=== PATIENT | female | born 1945 | race Caucasian/White ===

== ENCOUNTER 2022-12-31 08:37 | Inpatient (IN) | payer OTHER ==
[2022-12-31] MEDS ORDERED: NA CHLORIDE 0.9% 1,000 ML ONE (08:57)
[2022-12-31 09:17] LABS: Specific Gravity 1.024 (1.005-1.030); Urine Bacteria <20 /HPF (<20); Urine Bilirubin NEGATIVE (Negative); Urine Blood 2+ (Negative); Urine Clarity Clear (Clear); Urine Color Light-Yellow (Yellow); Urine Glucose 4+ (Over) (Negative); Urine Mucus Slight /HPF (None Seen); Urine Protein 1+ (Negative); Urine RBC <5 /HPF (None Seen); Urine Urobilinogen Normal (Normal); Urine WBC Clump Rare /HPF (None Seen); Urine pH 5.5 (5.0-7.0)
[2022-12-31 09:23] LABS: Absolute Lymphocytes (CBC) 0.8 K/uL (0.7-4.9); Hematocrit 42.2 % (36.0-45.0); Lymphocytes % 3.6 % (15.3-44.8); MCV 83.8 fL (80-100); MPV 8.9 fL (7.6-11.3); RBC Red Blood Cell Count 5.04 M/uL (3.86-4.86)
[2022-12-31 09:27] LABS: Protime INR 1.11
[2022-12-31 09:46] LABS: Albumin 3.3 g/dL (3.4-5.0); Bilirubin Total 0.8 mg/dL (0.2-1.0); Protein, Total 8.3 g/dL (6.4-8.2)
[2022-12-31 10:00] LABS: Blood Morphology Comment NOT SEEN (NOT SEEN); Platelet Estimate ADEQ; White Blood Cell Scan OK (OK)
--- NOTE | 2022-12-31 10:44 | RAD REPORT ---
EXAM DESCRIPTION: CT - Head C Spine Cap Wo Con - 12/31/2022 10:06 am CLINICAL HISTORY: fall, unable to get up, weakness COMPARISON: No comparisons TECHNIQUE: Head and cervical spine CT images were obtained without IV contrast. Chest, abdomen, and pelvis CT images were obtained following intravenous administration of 90 mL Isovue-300. Multiplanar reformats were generated and reviewed. All CT scans are performed using dose optimization technique as appropriate and may include automated exposure control or mA/KV adjustment according to patient size. FINDINGS: CT HEAD: No intracranial hemorrhage, mass effect, or edema. No evidence of acute territorial infarct. Nonspeci fic deep white matter mild hypoattenuation, most suggestive of chronic small vessel ischemic changes. No midline shift or abnormal fluid collection. The ventricles are normal in caliber and configuratio n for age. Basal cisterns are patent. Mastoid aircells and paranasal sinuses are clear. No acute skul l fracture. Scalp swelling along the bilateral parietal regions. CT CERVICAL SPINE: No acute cervical spine fracture or subluxation. Vertebral body heights are well maintained. Facet maida ints are normal in alignment. No hyperattenuating canal hematoma. The mild multilevel degenerative ch anges. Prevertebral and paraspinous soft tissues are unremarkable. CT CHEST: No pneumothorax, pulmonary contusion or pleural fluid collection. No mediastinal hematoma and the aor ta and pulmonary arteries are unremarkable. No chest will mass or abnormal axillary finding. No displ aced rib fracture or other significant bony finding. CT ABDOMEN/ PELVIS: No evidence of traumatic injury to solid abdominal viscera. Single small gallstone. No pericholecysti c fat stranding or apparent wall thickening. No evidence of intra or extrahepatic biliary ductal dila tion. The and uterine calcifications suggestive of underlying small fibroids. A right paramidline ant erior subserosal 4.4 centimeter fibroid with calcifications is also noted. No bowel injury or signifi cant finding. No free air, free fluid or abnormal fat stranding. No urinary bladder abnormality. No significant bony finding. IMPRESSION: No evidence of significant acute posttraumatic findings. Mild scalp swelling along the bilateral parietal regions. Other incidental findings as above.
--- NOTE | 2022-12-31 10:46 | RAD REPORT ---
EXAM DESCRIPTION: RAD - Shoulder Left 2 View - 12/31/2022 10:09 am CLINICAL HISTORY: PAIN COMPARISON: No comparisons TECHNIQUE: Internal and external rotation views of the left shoulder were obtained. FINDINGS: Depressed fracture along the greater tuberosity. Slight widening of the subacromial space, could be positional, or related to a degree of subluxation. AC joint is normal in appearance. No acu te or suspicious findings. IMPRESSION: Depressed fracture of the greater tuberosity. Widening of the subacromial space, could b e positional or related to a degree of subluxation.
--- NOTE | 2022-12-31 10:47 | RAD REPORT ---
EXAM DESCRIPTION: RAD - Femur Left - 12/31/2022 10:09 am CLINICAL HISTORY: fall;Pain COMPARISON: No comparisons TECHNIQUE: Left femur, 2 views. FINDINGS: No fracture is identified. Mild left hip joint degenerative changes. Moderate to advanced left knee joint degenerative changes, with joint space loss medially. There is no dislocation or roberto osteal reaction noted. No acute or suspicious bony finding. IMPRESSION: No acute osseous abnormality of the left femur. Degenerative changes as above.
--- NOTE | 2022-12-31 11:16 | ER ---
Nurse's Notes [facility] Name: Kandice Dewey Age: 77 yrs Sex: Female : 1945 Arrival Date: 12/31/2022 Time: 08:37 Bed 3 Private MD: Diagnosis: Fracture of greater tuberosity of humerus;Dehydration;Fall on same level from slipping, tripping and stumbling without subsequent striking against object;UTI/ Urinary tract infection, site not specified;Cellulitis, unspecified Presentation: 12/31 08:40 Chief complaint: EMS states: Toned out for fall, pt reports mechanical fall yesterday jl7 at 0800 in the morning, was unable to get up and didn't have her phone. Reporting left knee pain and left shoulder pain. 08:40 Coronavirus screen: At this time, the client does not indicate any symptoms associated jl7 with coronavirus-19. Ebola Screen: No symptoms or risks identified at this time. Initial Sepsis Screen: Does the patient meet any 2 criteria? No. Patient's initial sepsis screen is negative. Does the patient have a suspected source of infection? No. Patient's initial sepsis screen is negative. Risk Assessment: Do you want to hurt yourself or someone else? Patient reports no desire to harm self or others. Onset of symptoms was December 30, 2022 at 08:00. 08:40 Method Of Arrival: EMS: [place] [id number] 08:40 Acuity: MYESHA 3 jl7 Triage Assessment: 08:40 General: Appears in no apparent distress. uncomfortable, Behavior is calm, cooperative, jl7 appropriate for age. Pain: Complains of pain in anterior aspect of left shoulder and left knee. Neuro: Level of Consciousness is awake, alert, obeys commands, Oriented to person, place, time, situation. Cardiovascular: Patient's skin is warm and dry. Respiratory: Airway is patent Respiratory effort is even, unlabored, Respiratory pattern is regular, symmetrical, Denies shortness of breath. Respiratory: Denies pain with respiration. Derm: Skin is pink, warm \\T\\ dry. Wound noted left lower back and right breast. Historical: - Allergies: 09:45 Latex, Natural Rubber; jl7 09:45 Codeine; jl7 - Home Meds: 11:36 metformin 850 mg oral tablet 2 times per day [Active]; glyburide 5 mg oral tablet 2 jl7 times per day [Active]; - PMHx: 09:45 Diabetes mellitus; Hypertensive disorder; Hypercholesterolemia; jl7 - Immunization history:: Adult Immunizations unknown. - Social history:: Smoking status: Patient denies any tobacco usage or history of. - Family history:: not pertinent. - Hospitalizations: : No recent hospitalization is reported. Screenin:51 Abuse screen: Denies threats or abuse. Denies injuries from another. Nutritional [facility] screening: No deficits noted. Tuberculosis screening: No symptoms or risk factors identified. 10:00 [facility] ED Fall Risk Assessment (Adult) History of falling in the last 3 months, [facility] including since admission Yes- single mechanical fall (1 pt) Confusion or Disorientation No (0 pts) Intoxicated or Sedated No (0 pts) Impaired Gait Yes (1 pt) Mobility Assist Device Used No (0 pt) Altered Elimination No (0 pt) Score/Fall Risk Level 0 - 2 = Low Risk Oriented to surroundings, Maintained a safe environment. Assessment: 08:45 Reassessment: 16 FR Chapman placed, after placement pt reported latex allergy, pt states jl "I've had a catheter before and it didn't bother me so just leave this one in place. Just don't use latex gloves.". 11:33 Reassessment: Patient appears in no apparent distress at this time. Family remains at [facility] bedside, awaiting admission orders at this time. 12:02 Reassessment: Dr. Qiu at bedside. [facility] 13:00 Reassessment: Patient appears in no apparent distress at this time. No changes from [facility] previously documented assessment. Patient and/or family updated on plan of care and expected duration. Pain level reassessed. Patient is alert, oriented x 3, equal unlabored respirations, skin warm/dry/pink. 14:00 Reassessment: Patient appears in no apparent distress at this time. No changes from [facility] previously documented assessment. Patient and/or family updated on plan of care and expected duration. Pain level reassessed. Patient is alert, oriented x 3, equal unlabored respirations, skin warm/dry/pink. 15:00 Reassessment: Patient appears in no apparent distress at this time. No changes from [facility] previously documented assessment. Patient and/or family updated on plan of care and expected duration. Pain level reassessed. Patient is alert, oriented x 3, equal unlabored respirations, skin warm/dry/pink. Vital Signs: 08:40 BP 151 / 101; Pulse 88; Resp 15; Temp 97.9; jl7 10:00 BP 156 / 107; Pulse 103; Resp 15; Temp 98.6; Pulse Ox 97% ; Weight 107.5 kg; Height 5 jl7 ft. 3 in. ; Pain 8/10; 10:45 BP 168 / 83; Pulse 97; Resp 15; Pulse Ox 100% ; jl7 10:00 Body Mass Index 41.98 (107.50 kg, 160.02 cm) jl7 10:00 Pain Scale: Adult jl7 ED Course: 08:40 Patient arrived in ED. rn 08:40 Alphonso Roebrto MD is Attending Physician. rn 08:40 Arm band placed on right wrist. jl7 08:45 Urine collected: Chapman catheter specimen, titi colored. Chapman cath inserted, using jl7 sterile technique, 16 Fr., by pa, balloon inflated, urine specimen collected. 08:55 Urinalysis w/ reflexes Sent. ll1 09:00 Inserted saline lock: 20 gauge in right antecubital area, using aseptic technique. jl7 Blood collected. 09:00 Initial lab(s) drawn, by pa, sent to lab. First set of blood cultures drawn by pa. jl7 09:10 Inserted saline lock: 20 gauge in left antecubital area, using aseptic technique. jl7 09:15 Second set of blood cultures drawn by pa. jl7 09:42 Ángel Krueger, DAVIN is Primary Nurse. jl7 09:45 Triage completed. jl7 10:00 Patient has correct armband on for positive identification. Placed in gown. Bed in low jl7 position. Call light in reach. Side rails up X2. Client placed on continuous cardiac and pulse oximetry monitoring. NIBP monitoring applied. Warm blanket given. 10:02 Cleaned of incontinence. jl7 10:09 Head C Spine Cap Wo Con In Process Unspecified. EDMS 10:11 XRAY Shoulder LEFT 2 view In Process Unspecified. EDMS 10:11 XRAY Femur LEFT In Process Unspecified. EDMS 11:14 Giancarlo Qiu MD is Hospitalizing Provider. rn 15:31 No provider procedures requiring assistance completed. Patient admitted, IV remains in jl7 place. intact, No redness/swelling at site. Administered Medications: 09:20 Drug: NS 0.9% IV 1000 ml Route: IV; Rate: 1000 ml; Site: right antecubital; jl7 10:30 Follow up: Response: No adverse reaction; IV Status: Completed infusion; IV Intake: jl7 1000ml 11:34 Drug: vancoMYCIN IVPB 1 grams Route: IVPB; Infused Over: 2 hrs; Site: left antecubital; jl7 13:35 Follow up: Response: No adverse reaction; IV Status: Completed infusion; IV Intake: jl7 250ml 11:34 Drug: Cefepime IVPB 1 grams Route: IVPB; Rate: 200 ml/hr; Infused Over: 30 mins; Site: jl7 right antecubital; 12:04 Follow up: Response: No adverse reaction; IV Status: Completed infusion; IV Intake: jl7 100ml Medication: 08:45 VIS not applicable for this client. jl7 Intake: 10:30 IV: 1000ml; Total: 1000ml. jl7 12:04 IV: 100ml; Total: 1100ml. jl7 13:35 IV: 250ml; Total: 1350ml. jl7 Outcome: 11:14 Decision to Hospitalize by Provider. rn 15:32 Admitted to Med/surg accompanied by tech, family with patient, via stretcher, room 215, jl7 with chart, Report called to DAVIN Storey 15:32 Condition: stable 15:32 Discharge instructions given to patient, family, Instructed on the need for admit, Demonstrated understanding of instructions. 16:26 Patient left the ED. jl7 Signatures: Dispatcher [employer] EDMS Alphonso Roberto MD MD rn Leal, Jahala, RN RN jl7 Morenita Martínez RN RN ll1
--- NOTE | 2022-12-31 11:16 | EDPHYS ---
Physician Documentation [facility] Name: Kandice Dewey Age: 77 yrs Sex: Female : 1945 Arrival Date: 12/31/2022 Time: 08:37 Bed 3 Private MD: ED Physician Alphonso Roberto HPI: 12/31 11:09 This 77 yrs old Female presents to ER via EMS with complaints of Fall Injury. rn 11:09 Details of fall: The patient fell from an upright position. Onset: The symptoms/episode rn began/occurred yesterday. 11:10 Associated injuries: The patient sustained injury to the head, neck injury, injury to rn the low back, left shoulder. Severity of symptoms: At their worst the symptoms were moderate, in the emergency department the symptoms are unchanged. The patient has not experienced similar symptoms in the past. The patient has not recently seen a physician. Pt reports fall from standing yesterday, has been on ground unable to get up for 24 hours, found by family member who was visiting, soaked in urine, no PO intake for last 24 hours. Reports head pain, left shoulder pain, low back pain, left flank pain.. Historical: - Allergies: 09:45 Latex, Natural Rubber; jl7 09:45 Codeine; jl7 - Home Meds: 11:36 metformin 850 mg oral tablet 2 times per day [Active]; glyburide 5 mg oral tablet 2 jl7 times per day [Active]; - PMHx: 09:45 Diabetes mellitus; Hypertensive disorder; Hypercholesterolemia; jl7 - Immunization history:: Adult Immunizations unknown. - Social history:: Smoking status: Patient denies any tobacco usage or history of. - Family history:: not pertinent. - Hospitalizations: : No recent hospitalization is reported. ROS: 11:10 Constitutional: Negative for fever, chills, and weight loss, Eyes: Negative for injury, rn pain, redness, and discharge, Cardiovascular: Negative for chest pain, palpitations, and edema, Respiratory: Negative for shortness of breath, cough, wheezing, and pleuritic chest pain, Abdomen/GI: Negative for abdominal pain, nausea, vomiting, diarrhea, and constipation, Back: + left flank and back pain MS/Extremity: Negative for injury and deformity, Skin: Negative for injury, rash, and discoloration, Neuro: Negative for numbness, tingling, and seizure. Exam: 10:52 Constitutional: This is a well developed, well nourished patient who is awake, alert, rn and in no acute distress. Head/Face: Normocephalic, atraumatic. Eyes: Periorbital areas with no swelling, redness, or edema. Neck: no midline cervical tenderness Cardiovascular: Regular rate and rhythm. No pulse deficits. Respiratory: No increased work of breathing, no retractions or nasal flaring. Abdomen/GI: Soft, non-tender Skin: + ulcerative right lateral breast mass with some retraction. + left flank/low back induration/erythema/warmth/draining ulceration of skin. MS/ Extremity: + painful ROM left shoulder Neuro: Awake and alert, GCS 15, strength 4/5 throughout Vital Signs: 08:40 BP 151 / 101; Pulse 88; Resp 15; Temp 97.9; jl7 10:00 BP 156 / 107; Pulse 103; Resp 15; Temp 98.6; Pulse Ox 97% ; Weight 107.5 kg; Height 5 jl7 ft. 3 in. ; Pain 8/10; 10:45 BP 168 / 83; Pulse 97; Resp 15; Pulse Ox 100% ; jl7 10:00 Body Mass Index 41.98 (107.50 kg, 160.02 cm) jl7 10:00 Pain Scale: Adult jl7 MDM: 08:40 Patient medically screened. rn 11:10 Differential diagnosis: closed head injury, contusion, fracture, sprain, strain, rn abscess, sepsis, UTI, breast cancer. Data reviewed: vital signs, nurses notes, lab test result(s), radiologic studies, CT scan, plain films, and as a result, I will admit patient. Consideration of Admission/Observation Patient was admitted/placed on observation. Escalation of care including admission/observation considered. Management of patient was discussed with the following: Hospitalist: . Counseling: I had a detailed discussion with the patient and/or guardian regarding: the historical points, exam findings, and any diagnostic results supporting the discharge/admit diagnosis, lab results, radiology results, the need for further work-up and treatment in the hospital. 12/31 08:41 Order name: Blood Culture Adult (2) rn 12/31 08:41 Order name: CBC with Diff; Complete Time: 10:27 rn 12/31 08:41 Order name: CMP; Complete Time: 10:27 rn 12/31 08:41 Order name: Lactate w/ 2H reflex if indic.; Complete Time: 10:27 rn 12/31 08:41 Order name: Protime (+inr); Complete Time: 10:27 rn 12/31 08:41 Order name: Ptt, Activated; Complete Time: 10:27 rn 12/31 08:41 Order name: Urinalysis w/ reflexes; Complete Time: 10:27 rn 12/31 08:41 Order name: CK; Complete Time: 10: rn 12/31 09:00 Order name: Wound Culture rn 12/31 09:09 Order name: Glucose, Ancillary Testing; Complete Time: 10:27 EDTX 12/31 09:21 Order name: Urine Culture EDTX 12/31 10:01 Order name: CBC Smear Scan; Complete Time: 10: EDTX 12/31 13:00 Order name: NT PRO-BNP EDTX 12/31 14:45 Order name: Glucose, Ancillary Testing EDTX 12/31 08:42 Order name: XRAY Shoulder LEFT 2 view; Complete Time: 10:51 rn 12/31 08:42 Order name: XRAY Femur LEFT; Complete Time: 10:51 rn 12/31 09:49 Order name: Head C Spine Cap Wo Con; Complete Time: 10:51 EDTX 12/31 08:41 Order name: EKG; Complete Time: 08:42 rn 12/31 13:14 Order name: CONS Physician Consult EDTX 12/31 13:15 Order name: 60g Consistent Carbohydrate (ADA 1800/2000) EDTX 12/31 08:41 Order name: Accucheck; Complete Time: 09:51 rn 12/31 08:41 Order name: Cardiac monitoring; Complete Time: 09:51 rn 12/31 08:41 Order name: Cath; Complete Time: 08:55 rn 12/31 08:41 Order name: EKG - Nurse/Tech; Complete Time: 09:51 rn 12/31 08:41 Order name: IV Saline Lock - Large Bore; Complete Time: 09:51 rn 12/31 08:41 Order name: Labs collected and sent; Complete Time: 09:51 rn 12/31 08:41 Order name: O2 Per Protocol; Complete Time: 09:51 rn 12/31 08:41 Order name: O2 Sat Monitoring; Complete Time: 09:51 rn 12/31 08:41 Order name: Vital Signs; Complete Time: 09:51 rn 12/31 11:09 Order name: Shoulder Immobilizer; Complete Time: 15:32 rn Administered Medications: 09:20 Drug: NS 0.9% IV 1000 ml Route: IV; Rate: 1000 ml; Site: right antecubital; jl7 10:30 Follow up: Response: No adverse reaction; IV Status: Completed infusion; IV Intake: jl7 1000ml 11:34 Drug: vancoMYCIN IVPB 1 grams Route: IVPB; Infused Over: 2 hrs; Site: left antecubital; jl7 13:35 Follow up: Response: No adverse reaction; IV Status: Completed infusion; IV Intake: jl7 250ml 11:34 Drug: Cefepime IVPB 1 grams Route: IVPB; Rate: 200 ml/hr; Infused Over: 30 mins; Site: jl7 right antecubital; 12:04 Follow up: Response: No adverse reaction; IV Status: Completed infusion; IV Intake: jl7 100ml Disposition Summary: 12/31/22 11:14 Hospitalization Ordered Hospitalization Status: Inpatient Admission rn Provider: Giancarlo Qiu rn Location: Telemetry/MedSurg (Inpatient) rn Condition: Stable rn Problem: new rn Symptoms: have improved rn Bed/Room Type: Standard rn Room Assignment: 215(12/31/22 14:57) bd Diagnosis - Fracture of greater tuberosity of humerus rn - Dehydration rn - Fall on same level from slipping, tripping and stumbling without subsequent rn striking against object - UTI/ Urinary tract infection, site not specified rn - Cellulitis, unspecified rn Forms: - Medication Reconciliation Form rn - SBAR form rn Signatures: Dispatcher [employer] EDMS Cherelle Orlando Roman, MD MD rn Leal, Jahala, RN RN jl7 Corrections: (The following items were deleted from the chart) 09:49 08:42 Head C Spine CAP W Con+CT.RAD.BRZ ordered. EDTX EDTX 14:57 11:14 rn bd
[2022-12-31] MEDS ORDERED: VANCOMYCIN 1 GM/VIAL ONE (11:25)
[2022-12-31] MEDS ORDERED: CEFEPIME 1 GM/VIAL ONE (11:25)
[2022-12-31] MEDS ORDERED: NA CHLORIDE 0.9% 250 ML ONE (11:25)
[2022-12-31] MEDS ORDERED: NA CHLORIDE 0.9% 100 ML ONE (11:25)
[2022-12-31] MEDS ORDERED: GLUCAGON 1 MG/VIAL IM PRN (13:13)
[2022-12-31] MEDS ORDERED: D10W 250 ML BAG IV PRN (13:15)
--- NOTE | 2022-12-31 15:54 | P.HP ---
Certification for Inpatient Patient admitted to: Inpatient With expected LOS: >2 Midnights Patient will require the following post-hospital care: None Practitioner: I am a practitioner with admitting privileges, knowledge of patient current condition, hospital course, and medical plan of care. Services: Services provided to patient in accordance with Admission requirements found in Title 42 Section 412.3 of the Code of Federal Regulations Patient History Date of Service: 12/31/22 Reason for admission: Fall History of Present Illness: Patient is a 77-year-old female with a past medical history significant for DM 2, hyperlipidemia, morbid obesity, hypertension who presents with complaint of fall which occurred yesterday. Patient reported that her walker got stuck at home as she was walking and patient subsequently fell. Patient denies hitting her head or losing consciousness. Patient reported that she was on the floor for 24 hours. Patient complains of left shoulder pain rated as 10/10 in severity and described as aching in quality. Patient also reports right breast abscess\ulcer that has gotten worse over the past 1 month as well as left flank abscess which started as an induration 1 month ago but became a wound 1 week ago with associated redness. Patient denies any other signs and symptoms. Symptoms are aggravated or relieved by nothing. Patient was brought to the hospital for medical evaluation. Allergies codeine [Codeine] Allergy (Intermediate, Verified 06/26/14 03:48) Disorientation latex Allergy (Verified 06/26/14 03:48) Hives Home Medications: oxyBUTYnin chloride [Ditropan*] 5 mg PO DAILY 03/18/13 Simvastatin [Zocor*] 20 mg PO BEDTIME #30 tablet 03/19/13 lisinopriL [Prinivil*] 10 mg PO DAILY #30 tab 03/19/13 Liraglutide [Victoza 2-Tai] 1.2 mg SQ DAILY 06/26/14 Glyburide [Diabeta] 5 mg PO BID #60 tablet 06/29/14 Levofloxacin [Levaquin] 500 mg PO DAILY #10 tablet 06/29/14 Potassium Chloride [Klor-Con M10] 10 meq PO DAILY #7 tab.er.prt 06/30/14 - Past Medical/Surgical History Diabetic: Yes -: DM, HTN, HYPERLIPIEMIA -: tonsillectomy -: appy - Family History Mother -: Heart disease, Diabetes Notes: CHF Brother -: Hypertension, Diabetes Notes: HTN AND HYPERLIPIDEMIA. Sister -: Cancer Notes: THYROID CANCER. - Social History Smoking Status: Never smoker Alcohol use: No CD- Drugs: No Caffeine use: Yes Place of Residence: Home Review of Systems General: Unremarkable Eyes: Unremarkable ENT: Unremarkable Respiratory: Unremarkable Cardiovascular: Unremarkable Gastrointestinal: Unremarkable Genitourinary: Unremarkable Musculoskeletal: Shoulder Pain Integumentary: Other (Right breast abscess\left flank abscess) Neurological: Unremarkable Lymphatics: Unremarkable Physical Examination - Physical Exam General: Alert, In no apparent distress, Oriented x3, Cooperative HEENT: Atraumatic, PERRLA, Mucous membr. moist/pink, EOMI, Sclerae nonicteric Neck: Supple, 2+ carotid pulse no bruit, No LAD, Without JVD or thyroid abnormality Respiratory: Clear to auscultation bilaterally, Normal air movement Cardiovascular: No edema, Regular rate/rhythm, Normal S1 S2 Capillary refill: <2 Seconds Gastrointestinal: Normal bowel sounds, Soft and benign, No tenderness Musculoskeletal: No clubbing, No swelling, No tenderness Integumentary: Skin breakdown, Tenderness/swelling, Erythema Neurological: Normal speech, Normal tone, Normal affect Lymphatics: No axilla or inguinal lymphadenopathy - Studies Laboratory Data (last 24 hrs) 12/31/22 09:00: PT 12.2, INR 1.11, APTT 25.9 12/31/22 09:00: Sodium 134 L, Potassium 4.0, BUN 18, Creatinine 0.88, Glucose 303 H, Total Bilirubin 0.8, AST 36, ALT 28, Alkaline Phosphatase 71 12/31/22 09:00: WBC 21.30 H, Hgb 13.5, Hct 42.2, Plt Count 267 Female Exam - Breasts Breasts: Other (Right breast abscess.) Assessment and Plan - Plan --Left flank and right breast abscess. General surgeon consulted. Continue antibiotics. Wound cultures pending. We will further recommendation from surgeon. --Depressed fracture of the greater tuberosity. Orthopedic surgeon reported. Recommended placing patient on left arm sling and nonweightbearing on left arm. -- Acute pain. We will manage pain with current pain medication regimen. --Leukocytosis. Blood cultures pending. Continue antibiotics. --Class III obesity. Likely secondary to excess calories intake. Patient counseled on weight reduction, diet and excise therapy. --Hypertension. Poorly controlled. Continue home medications and labetalol as needed. --Hyperlipidemia. Continue home medication. --OAB. Continue home medication. --CKD 2. Stable. We will continue to monitor renal functions. --DVT prophylaxis with SCDs. Discharge Plan: Home Plan to discharge in: Greater than 2 days - Advance Directives Does patient have a Living Will: No Does patient have a Durable POA for Healthcare: Yes - Code Status/Comfort Care Code Status Assessed: Yes Physician Review: Patient Assessed, Agree with Above Assessment and Plan Critical Care: No
[2022-12-31] MEDS: INSULIN -REGULAR HUMAN 50 UNIT/0.5 ML ML SQ SCH ×2 (16:30→22:00)
[2022-12-31 18:31] VITALS: BMI 42.0
[2022-12-31 20:00] LABS: Absolute Lymphocytes (CBC) 1.1 K/uL (0.7-4.9); Hematocrit 37.2 % (36.0-45.0); Lymphocytes % 5.5 % (15.3-44.8); MCV 83.2 fL (80-100); MPV 8.9 fL (7.6-11.3); RBC Red Blood Cell Count 4.47 M/uL (3.86-4.86)
[2022-12-31] MEDS ORDERED: PNEUMOCOCCAL VACCINE 0.5 ML IMVAC ONE (20:00)
[2022-12-31 20:26] LABS: Magnesium 1.5 mg/dL (1.6-2.4); Thyroid Stimulating Hormone 1.82 uIU/mL (0.358-3.740)
[2022-12-31 20:31] LABS: Phosphorus 1.1 mg/dL (2.5-4.9)
[2022-12-31] MEDS ORDERED: POTASS/SODIUM PHOSPHATE 1 PKT POWD.PACK PO SCH (21:00)
[2022-12-31] MEDS: NA CHLORIDE 0.9% 1,000 ML IV SCH (21:59)
[2022-12-31] MEDS: CEFEPIME 1 GM in NA CHLORIDE 0.9% 100 ML IV SCH (22:01)
[2023-01-01] MEDS ORDERED: POTASSIUM PHOS IN 0.9 % NACL 15 MMOL/250 ML BAG IV ONE ×2 (00:44→09:00)
[2023-01-01] MEDS: VANCOMYCIN 1.25 GM in NA CHLORIDE 0.9% 250 ML IVPB SCH ×2 (01:24→23:37)
[2023-01-01 03:58] LABS: Albumin 2.4 g/dL (3.4-5.0); Bilirubin Total 0.6 mg/dL (0.2-1.0); Potassium 3.6 mEq/L (3.5-5.1); Protein, Total 6.3 g/dL (6.4-8.2)
[2023-01-01] MEDS ORDERED: Magnesium Sulfate 2gm IVPB 2 G/50 ML BAG IV ONE (04:00)
[2023-01-01 04:56] LABS: Phosphorus 1.9 mg/dL (2.5-4.9)
--- NOTE | 2023-01-01 07:08 | EKG ---
Test Date: 2022-12-31 Test Time: 09:38:38 Welfare Director: ZOILA MEASUREMENT RESULTS: Intervals: Rate: 96 MS: 170 QRSD: 82 QT: 338 QTc: 427 [place]: P: 72 MS: 170 QRS: 48 T: -35 INTERPRETIVE STATEMENTS: Sinus rhythm with premature atrial complexes Possible Inferior infarct, age undetermined Abnormal ECG Compared to ECG 06/25/2014 20:56:30 Atrial premature complex(es) now present Myocardial infarct finding now present Sinus tachycardia no longer present Electronically Signed On 01-01-23 07:06:39 CDT by Carlos Schmidt
[2023-01-01] MEDS ORDERED: NA CHLORIDE 0.9% 100 ML ONE (08:51)
[2023-01-01] MEDS ORDERED: CEFEPIME 1 GM/VIAL ONE (08:54)
[2023-01-01] MEDS: NA CHLORIDE 0.9% 1,000 ML IV SCH ×2 (08:58→21:39)
[2023-01-01] MEDS: CEFEPIME 1 GM in NA CHLORIDE 0.9% 100 ML IV SCH ×2 (08:58→21:39)
[2023-01-01] MEDS: MORPHINE 4 MG/ML SYR IV PRN ×3 (08:59→16:20)
[2023-01-01] MEDS: INSULIN -REGULAR HUMAN 50 UNIT/0.5 ML ML SQ SCH ×4 (08:59→21:39)
[2023-01-01] MEDS ORDERED: POTASSIUM CL SA 10 MEQ TAB PO ONE (09:00)
[2023-01-01] MEDS ORDERED: BUPIVACAINE 0.5% PF 10 ML VIAL ONE (13:41)
--- NOTE | 2023-01-01 14:17 | P.CNS ---
Date of Consult: 01/01/23 PC: I was asked to see this patient in regards to a lesion of her right breast/chest wall. HPC: This patient, sustained a fall. She is in because of a fractured humerus. This has been dealt with with conservative management, and follow-up as outpatient. However was noted at the time the patient also has a lesion on her left thigh/hip area which appears to be an old abscess. She also has an 8 lesion of concern on the right chest breast area that appears to be a abscess with hard induration around this. She was supposedly to be scheduled for a mammogram at some point. PSHx: NAD PMHx: History of thyroid cancer Social Hx: Says she is got allergies codeine and latex Sys R: No cough, wheeze, shortness of breath. States she has been okay at home. Was positive got a mammogram a few months ago, but this did not work out for her. O/E: Awake alert. HEENT: Negative Chest: On the right breast chest area, has a large indurated area with contraction. It appears to be old for an abscess that we can see on the CT scan. Abd: Has an area on her left thigh hip area consistent with an abscess. Data: CT scan shows these abscesses Impression: 2 abscesses Plan: I will taken to the operating room for incision, drainage, sharp debridement of both these abscesses. We will try to determine the etiology of the wound in her right breast, as she may require further treatment once the underlying etiology has been discovered. I have discussed this in detail with the patient. She is comfortable with this. The risks of the procedure were discussed. The possibility of bleeding, infection, the fact that the procedures today are not that necessarily curative and she may require further surgeries and procedures.
[2023-01-01] MEDS ORDERED: MIDAZOLAM HCL 2 MG/2 ML INJ ONE (14:19)
[2023-01-01] MEDS ORDERED: ONDANSETRON 4 MG/2 ML VIAL ONE (14:19)
[2023-01-01] MEDS ORDERED: propofoL 200 MG/20 ML VIAL IV ONE (14:19)
[2023-01-01] MEDS ORDERED: FENTANYL CITR 100 MCG/2 ML ONE ×2 (14:19→15:02)
[2023-01-01] MEDS ORDERED: LIDOCAINE 2% MPF 5 ML VIAL ONE (14:20)
--- NOTE | 2023-01-01 14:22 | CON ---
Date of Consultation: 01/01/2023 Reason For Consultation: Left shoulder pain. History Of Present Illness: Ms. Dewey is a 77-year-old female, who presented to the ER yesterday a fter sustaining a fall onto her left side with subsequent pain on to her left shoulder. The patient had imaging in the emergency room, which demonstrated a minimally displaced greater tuberosity fractu re. The patient denies any head trauma or loss of consciousness. The patient states she fell after her walker got stuck. She was admitted to the floor by the hospitalist service for further evaluatio n and treatment recommendations. Review of Systems: As above, otherwise negative. Past Medical History: Includes diabetes, hyperlipidemia, hypertension. Past Surgical History: Includes appendectomy, tonsillectomy. Home Medications: Oxybutynin, simvastatin, lisinopril, Victoza, glyburide, Levaquin, and potassium. Allergies: TO CODEINE AND LATEX. Family History: Reviewed and noncontributory. Social History: Denies tobacco or alcohol use. Denies drug use. Lives at home. Physical Examination: General: No apparent distress. HEENT: Normocephalic, atraumatic. Neck: Supple. Cardiovascular: Brisk cap refill to all digits. Chest: Nonlabored breathing. Abdomen: Nondistended. Psychiatric: Responds to exam. Musculoskeletal: Right upper extremity functional range of motion without pain. No gross deformitie s. No dislocations. Left upper extremity; tenderness to palpation over the greater tuberosity, pain with range of motion of left shoulder. No tenderness over the elbow, forearm, or wrist. Neurovascu larly intact distally. Bilateral lower extremities; functional range of motion without pain, no tomasa s deformities, no obvious dislocations. Diagnostic Studies: X-ray and CAT scan demonstrate a minimally displaced left greater tuberosity fra cture. Assessment And Plan: Kandice is a 77-year-old female with a left shoulder greater tuberosity fracture . I discussed with the patient's at length diagnosis as well as treatment plan. No surgical interve ntion is indicated for the left shoulder at this time. We will proceed with conservative treatment m easures including sling immobilization. The patient will be nonweightbearing of her left upper extre mity. Physical Therapy may be consulted today with mobilization. The patient may follow up in my in in 3 weeks for re-evaluation and x-rays of her left shoulder. CV/MODL Voice ID: [id number] Report ID: [id number]
--- NOTE | 2023-01-01 14:39 | EKG ---
Test Date: 2022-12-31 Test Time: 11:56:52 Licensed Nurse Practitioner: ZOILA MEASUREMENT RESULTS: Intervals: Rate: 104 NC: 160 QRSD: 82 QT: 320 QTc: 420 [place]: P: 63 NC: 160 QRS: 57 T: 64 INTERPRETIVE STATEMENTS: Sinus tachycardia with premature atrial complexes Otherwise normal ECG Compared to ECG 12/31/2022 09:38:38 Sinus rhythm no longer present Myocardial infarct finding no longer present Electronically Signed On 01-01-23 14:37:13 CDT by Nicholas De Oliveira
--- NOTE | 2023-01-01 15:21 | P.OP ---
Preoperative diagnosis: Right breast mass, abscess left flank Postoperative diagnosis: The same Primary procedure: Excisional biopsy of right breast mass, Secondary procedure: Wide excision of necrotic skin and drainage of left flank abscess Anesthesia: General Estimated blood loss: Less than 20 cc Specimen: Mass from right breast Operative Technique: The patient brought the operating room placed supine on the table. After the induction of adequate general endotracheal tracheal anesthesia, the area of the right breast was prepped with a Betadine solution, and draped in usual aseptic manner. At the lateral aspect of this right breast there is an area measuring approximately 3 inches x 2 inches in size. It shows thinned chronic inflammatory tissue. This was excised in a circumferential manner. After we had done this we took an 11 blade and cored out a sample of this thickened tissue underneath. It cut like a cancer. This was sent for histopathology. This wound was packed open with iodoform gauze. Adequate hemostasis having been controlled with electrocautery. Deep palpation of the axilla at this time and along the lateral aspect of the chest does not reveal any large palpable lymph nodes. My plan is to verify that this is indeed a cancer and discussed with the patient a modified radical mastectomy on the right. The wound was dressed in the usual manner. Attention was now turned towards his area of abscess on the left hip. It is right at the the junction of the buttock with the lateral portion of the left flank. A skin incision was made to fully excise the circumferential piece of full-thickness tissue. The underlying tissue had an obvious necrotic odor coming from it. Cultures both aerobic and anaerobic were taken. The underlying tissue was then sharply debrided with a cutting surgical curette. At the most dependent portion of this wound a counterincision was made. Through this we passed 1/4 inch drain. We will leave this wound open. The wound was irrigated with a peroxide solution and a dressing applied. At the end of the procedure the patient was in a stable condition was sent to the recovery room. Needle sponge instrument count were correct. Complications: None Drain(s): Other (Quarter-inch Bricelyn drain) Transferred to: Recovery Room Condition: Good
[2023-01-01 17:36] LABS: Specific Gravity > 1.030 (1.005-1.030); Urine Clarity Turbid (Clear); Urine Color Yellow (Yellow); Urine Glucose Trace (Negative)
[2023-01-01 17:37] LABS: Urine Bilirubin Negative (Negative); Urine Blood 1+ (Negative); Urine Protein 1+ (Negative); Urine Urobilinogen 0.2 mg/dL (0.2-1.0)
[2023-01-01 17:42] LABS: Urine Bacteria <20 /HPF (<20); Urine RBC <5 /HPF (None Seen)
[2023-01-01 19:01] LABS: Phosphorus 1.8 mg/dL (2.5-4.9)
[2023-01-01] MEDS ORDERED: ACETAMINOPHEN 500 MG TAB PO PRN (23:51)
[2023-01-02] MEDS ORDERED: POTASSIUM PHOS IN 0.9 % NACL 15 MMOL/250 ML BAG IV ONE
[2023-01-02] MEDS: MORPHINE 4 MG/ML SYR IV PRN ×3 (04:19→14:41)
[2023-01-02 04:37] LABS: Potassium 4.2 mEq/L (3.5-5.1)
[2023-01-02] MEDS: CEFEPIME 1 GM in NA CHLORIDE 0.9% 100 ML IV SCH ×2 (10:49→20:16)
[2023-01-02] MEDS: NA CHLORIDE 0.9% 1,000 ML IV SCH ×2 (10:49→23:37)
[2023-01-02] MEDS: INSULIN -REGULAR HUMAN 50 UNIT/0.5 ML ML SQ SCH ×4 (10:50→21:31)
--- NOTE | 2023-01-02 14:03 | P.PN ---
Date of Service: 01/02/23 S: Patient has no specific complaints today, says she is not in any pain. States that she just hurts all over. O: Vital signs are stable, wound on right breast is clean, no bleeding. The wound on the left flank area is soft, open, minimal amount of draining in the dressing, but has not increased in size or show any signs of spreading at this point. A: There is no results back from the pathology specimen. I strongly believe however the lesion in her breast is going to be a cancer. For a 77-year-old female like her, local control with modified radical mastectomy and axillary node dissection would probably be the most relevant treatment. I am reluctant to proceed however at this time until we are sure that that wound on her left hip is clean and not progressing. P: Continue with antibiotics, wound care, and await path report.
[2023-01-02] MEDS ORDERED: METOPROLOL TARTRATE 5 MG/5 ML INJ IV STA (15:45)
[2023-01-02] MEDS: VANCOMYCIN 1.25 GM in NA CHLORIDE 0.9% 250 ML IVPB SCH (17:42)
[2023-01-02] MEDS: METOPROLOL TAR 50 MG TAB PO SCH (18:25)
[2023-01-02] MEDS: LABETALOL 20 MG/4ML SYRINGE IV PRN (20:15)
[2023-01-03] MEDS: MORPHINE 4 MG/ML SYR IV PRN ×3 (03:04→23:07)
[2023-01-03] MEDS: METOPROLOL TAR 50 MG TAB PO SCH ×2 (06:11→18:31)
--- NOTE | 2023-01-03 08:32 | P.PN ---
Date of Service: 01/01/23 Subjective Patient to proceed with I&D. Continue with supportive care. Pathology will determine which direction to go after that. Physical Examination - Physical Exam General: Alert, In no apparent distress, Oriented x3, Cooperative Respiratory: Clear to auscultation bilaterally, Normal air movement Cardiovascular: No edema, Regular rate/rhythm, Normal S1 S2 Gastrointestinal: Normal bowel sounds, Soft and benign, No tenderness Musculoskeletal: No clubbing, No swelling, No tenderness Integumentary: Skin breakdown, Tenderness/swelling, Erythema Neurological: Normal speech, Normal tone, Normal affect Breasts: Other (Right breast mass/abscess.) Assessment and Plan - Plan --Left flank abscess and right breast mass/abscess. General surgeon consulted. Continue antibiotics. Wound cultures pending. We will further recommendation from surgeon. --Depressed fracture of the greater tuberosity. Orthopedic surgeon consulted. Recommended placing patient on left arm sling and nonweightbearing on left arm. -- Acute pain. We will manage pain with current pain medication regimen. --Leukocytosis. Blood cultures pending. Continue antibiotics. --Class III obesity. Likely secondary to excess calories intake. Patient counseled on weight reduction, diet and excise therapy. --Hypertension. Poorly controlled. Continue home medications and labetalol as needed. --Hyperlipidemia. Continue home medication. --OAB. Continue home medication. --CKD 2. Stable. We will continue to monitor renal functions. --DVT prophylaxis with SCDs. Discharge Plan: Home Plan to discharge in: Greater than 2 days - Advance Directives Does patient have a Living Will: No Does patient have a Durable POA for Healthcare: Yes - Code Status/Comfort Care Code Status Assessed: Yes Physician Review: Patient Assessed, Agree with Above Assessment and Plan Critical Care: No
--- NOTE | 2023-01-03 08:34 | P.PN ---
Date of Service: 01/02/23 Subjective Patient doing well with no new complaints. Status post I&D. Wound continues to heal. Pathology pending. Patient to possibly get mastectomy next week pending pathology and surgery recommendations. Physical Examination - Physical Exam General: Alert, In no apparent distress, Oriented x3, Cooperative Respiratory: Clear to auscultation bilaterally, Normal air movement Cardiovascular: No edema, Regular rate/rhythm, Normal S1 S2 Gastrointestinal: Normal bowel sounds, Soft and benign, No tenderness Musculoskeletal: No clubbing, No swelling, No tenderness Integumentary: Skin breakdown, Tenderness/swelling, Erythema Neurological: Normal speech, Normal tone, Normal affect Breasts: Other (Right breast mass/abscess.) Assessment and Plan - Plan --Left flank abscess and right breast mass/abscess. General surgeon consulted. Continue antibiotics. Wound cultures pending. Status post incision and debridement. Pathology pending. Decision on what to do pending pathology report. Masectomy scheduled for next week pending path. --Depressed fracture of the greater tuberosity. Orthopedic surgeon consulted. Recommended placing patient on left arm sling and nonweightbearing on left arm. Range of motion as tolerated. --Acute pain. We will manage pain with current pain medication regimen. --Leukocytosis. Blood cultures pending. Continue antibiotics. --Class III obesity. Likely secondary to excess calories intake. Patient counseled on weight reduction, diet and excise therapy. --Hypertension. Poorly controlled. Continue home medications and labetalol as needed. --Hyperlipidemia. Continue home medication. --OAB. Continue home medication. --CKD 2. Stable. We will continue to monitor renal functions. --DVT prophylaxis with SCDs. Discharge Plan: Home Plan to discharge in: Greater than 2 days - Advance Directives Does patient have a Living Will: No Does patient have a Durable POA for Healthcare: Yes - Code Status/Comfort Care Code Status Assessed: Yes Physician Review: Patient Assessed, Agree with Above Assessment and Plan Critical Care: No
[2023-01-03] MEDS: CEFEPIME 1 GM in NA CHLORIDE 0.9% 100 ML IV SCH ×2 (09:31→21:25)
[2023-01-03] MEDS: INSULIN -REGULAR HUMAN 50 UNIT/0.5 ML ML SQ SCH ×4 (09:38→21:26)
[2023-01-03] MEDS: VANCOMYCIN 1.25 GM in NA CHLORIDE 0.9% 250 ML IVPB SCH (12:21)
[2023-01-03] MEDS: NA CHLORIDE 0.9% 1,000 ML IV SCH (12:23)
--- NOTE | 2023-01-03 13:44 | P.PN ---
Subjective Date of Service: 01/03/23 Chief Complaint: Fall Subjective: No new changes Still very lethargic. Physical Examination - Vital Signs Temperature: 97.8 F Blood Pressure: 166/69 Pulse: 90 Respirations: 24 Pulse Ox (%): 97 - Physical Exam General: Cachectic HEENT: Atraumatic, Normocephalic Neck: Supple Respiratory: Normal air movement Cardiovascular: Regular rate/rhythm, Normal S1 S2 Gastrointestinal: Soft and benign Musculoskeletal: No swelling - Studies Microbiology Data (last 24 hrs): 12/31/22 09:02 Wound - Abscess Gram Stain - Final 12/31/22 08:50 Catheterized Urine [place] Count - Final <10,000 CFU/ML. 12/31/22 08:50 Catheterized Urine - Final Escherichia Coli Assessment And Plan - Plan Assessment and Plan - Plan --Left flank abscess and right breast mass/abscess. General surgeon consulted and recommendations noted. Plans for surgery in the coming week.. Continue antibiotics. Wound cultures pending. Status post incision and debridement. Pathology pending. Decision on what to do pending pathology report. Masectomy scheduled for next week pending path. --Depressed fracture of the greater tuberosity. Orthopedic surgeon consulted. Recommended placing patient on left arm sling and non weight bearing on left arm. Range of motion as tolerated. --Acute pain. We will manage pain with current pain medication regimen. --Leukocytosis. Blood cultures pending. Continue antibiotics. --Class III obesity. Likely secondary to excess calories intake. Patient counseled on weight reduction, diet and excise therapy. --Hypertension. Poorly controlled. Continue home medications and labetalol as needed. --Hyperlipidemia. Continue home medication. --OAB. Continue home medication. --CKD 2. Stable. We will continue to monitor renal functions. --DVT prophylaxis with SCDs. Discharge Plan: Home Plan to discharge in: Greater than 2 days Physician Review: Patient Assessed, Agree with Above Assessment and Plan
[2023-01-04] MEDS: NA CHLORIDE 0.9% 1,000 ML IV SCH ×2 (03:45→17:16)
[2023-01-04 04:39] LABS: Potassium 3.9 mEq/L (3.5-5.1)
[2023-01-04 04:43] LABS: Phosphorus 1.5 mg/dL (2.5-4.9)
[2023-01-04] MEDS: VANCOMYCIN 1.25 GM in NA CHLORIDE 0.9% 250 ML IVPB SCH (05:04)
[2023-01-04] MEDS: METOPROLOL TAR 50 MG TAB PO SCH ×2 (05:04→18:04)
[2023-01-04] MEDS ORDERED: POTASSIUM PHOS IN 0.9 % NACL 15 MMOL/250 ML BAG IV ONE (07:00)
[2023-01-04] MEDS: CEFEPIME 1 GM in NA CHLORIDE 0.9% 100 ML IV SCH ×2 (09:28→20:33)
[2023-01-04] MEDS: INSULIN -REGULAR HUMAN 50 UNIT/0.5 ML ML SQ SCH ×4 (09:28→22:03)
--- NOTE | 2023-01-04 10:41 | P.PN ---
Subjective Date of Service: 01/05/23 Chief Complaint: Fall Subjective: No new changes Still very lethargic. Physical Examination - Vital Signs Temperature: 97.4 F Blood Pressure: 154/66 Pulse: 86 Respirations: 14 Pulse Ox (%): 99 - Physical Exam General: In no apparent distress Neck: Supple Respiratory: Normal air movement Cardiovascular: Regular rate/rhythm, Normal S1 S2 Gastrointestinal: Soft and benign - Studies Microbiology Data (last 24 hrs): 12/31/22 09:02 Wound - Abscess Gram Stain - Final 12/31/22 09:02 Wound - Abscess Culture & Sensitivity - Final Klebsiella Pneumoniae Gram Neg John 12/31/22 08:50 Catheterized Urine [place] Count - Final <10,000 CFU/ML. 12/31/22 08:50 Catheterized Urine - Final Escherichia Coli Assessment And Plan - Plan Assessment and Plan - Plan --Left flank abscess and right breast mass/abscess. General surgeon consulted and recommendations noted. Plans for surgery in the coming week.. Continue antibiotics. Wound cultures pending. Status post incision and debridement. Pathology pending. Decision on what to do pending pathology report. Masectomy scheduled for next week pending path. --Depressed fracture of the greater tuberosity. Orthopedic surgeon consulted. Recommended placing patient on left arm sling and non weight bearing on left arm. Range of motion as tolerated. --Acute pain. We will manage pain with current pain medication regimen. --Leukocytosis. Blood cultures pending. Continue antibiotics. --Class III obesity. Likely secondary to excess calories intake. Patient counseled on weight reduction, diet and excise therapy. --Hypertension. Poorly controlled. Continue home medications and labetalol as needed. --Hyperlipidemia. Continue home medication. --OAB. Continue home medication. --CKD 2. Stable. We will continue to monitor renal functions. --DVT prophylaxis with SCDs. Discharge Plan: Home Plan to discharge in: Greater than 2 days Physician Review: Patient Assessed, Agree with Above Assessment and Plan
[2023-01-04] MEDS: MORPHINE 4 MG/ML SYR IV PRN (15:00)
[2023-01-04] MEDS: LABETALOL 20 MG/4ML SYRINGE IV PRN (17:15)
[2023-01-05] MEDS: VANCOMYCIN 1.5 GM in NA CHLORIDE 0.9% 500 ML IVPB SCH ×2 (00:47→17:43)
[2023-01-05] MEDS: LABETALOL 20 MG/4ML SYRINGE IV PRN ×3 (01:51→21:14)
[2023-01-05 04:09] LABS: Phosphorus 2.3 mg/dL (2.5-4.9); Potassium 4.2 mEq/L (3.5-5.1)
[2023-01-05] MEDS: METOPROLOL TAR 50 MG TAB PO SCH ×2 (05:27→17:41)
[2023-01-05] MEDS: NA CHLORIDE 0.9% 1,000 ML IV SCH ×2 (05:40→15:16)
[2023-01-05] MEDS ORDERED: SODIUM PHOSPHATE 15 MM in NA CHLORIDE 0.9% 250 ML IV ONE (08:00)
[2023-01-05] MEDS ORDERED: POTASSIUM PHOS IN 0.9 % NACL 15 MMOL/250 ML BAG IV ONE (09:00)
[2023-01-05] MEDS: INSULIN -REGULAR HUMAN 50 UNIT/0.5 ML ML SQ SCH ×4 (09:26→21:13)
[2023-01-05] MEDS: CEFEPIME 1 GM in NA CHLORIDE 0.9% 100 ML IV SCH ×2 (09:30→21:12)
--- NOTE | 2023-01-05 09:54 | P.PN ---
Subjective Date of Service: 01/05/23 Chief Complaint: Fall Subjective: No new changes Still very lethargic. Physical Examination - Vital Signs Temperature: 97.4 F Blood Pressure: 173/79 Pulse: 77 Respirations: 16 Pulse Ox (%): 96 - Physical Exam General: In no apparent distress HEENT: Atraumatic, Normocephalic Neck: Supple Respiratory: Normal air movement Cardiovascular: Regular rate/rhythm, Normal S1 S2 Musculoskeletal: No swelling Neurological: Normal speech - Studies Microbiology Data (last 24 hrs): 12/31/22 09:15 Blood - Blood Aerobic Blood Culture - Final No growth in 5 days. 12/31/22 09:15 Blood - Blood Anaerobic Blood Culture - Final No growth in 5 days. 12/31/22 09:00 Blood - Blood Aerobic Blood Culture - Final No growth in 5 days. 12/31/22 09:00 Blood - Blood Anaerobic Blood Culture - Final No growth in 5 days. 12/31/22 09:02 Wound - Abscess Gram Stain - Final 12/31/22 09:02 Wound - Abscess Culture & Sensitivity - Final Klebsiella Pneumoniae Gram Neg John Assessment And Plan - Plan Assessment and Plan - Plan --Left flank abscess and right breast mass/abscess. General surgeon consulted and recommendations noted. Plans for surgery in the coming week.. Continue antibiotics. Wound cultures pending. Status post incision and debridement. Pathology pending. Decision on what to do pending pathology report. Masectomy scheduled for next week pending path. --Depressed fracture of the greater tuberosity. Orthopedic surgeon consulted. Recommended placing patient on left arm sling and non weight bearing on left arm. Range of motion as tolerated. --Acute pain. We will manage pain with current pain medication regimen. --Leukocytosis. Blood cultures pending. Continue antibiotics. --Class III obesity. Likely secondary to excess calories intake. Patient couns eled on weight reduction, diet and excise therapy. --Hypertension. Poorly controlled. Continue home medications and labetalol as needed. --Hyperlipidemia. Continue home medication. --OAB. Continue home medication. --CKD 2. Stable. We will continue to monitor renal functions. --DVT prophylaxis with SCDs. Discharge Plan: Home Plan to discharge in: Greater than 2 days Physician Review: Patient Assessed, Agree with Above Assessment and Plan
[2023-01-05] MEDS: MORPHINE 4 MG/ML SYR IV PRN (22:16)
[2023-01-06 04:02] LABS: Phosphorus 2.2 mg/dL (2.5-4.9); Potassium 4.1 mEq/L (3.5-5.1)
[2023-01-06] MEDS: LABETALOL 20 MG/4ML SYRINGE IV PRN (05:40)
[2023-01-06] MEDS: METOPROLOL TAR 50 MG TAB PO SCH ×2 (06:21→17:51)
[2023-01-06] MEDS: NA CHLORIDE 0.9% 1,000 ML IV SCH ×3 (06:22→21:28)
[2023-01-06] MEDS: POTASS/SODIUM PHOSPHATE 1 PKT POWD.PACK PO SCH ×5 (06:31→19:02)
[2023-01-06 07:53] LABS: Absolute Lymphocytes (CBC) 1.2 K/uL (0.7-4.9); MCV 83.5 fL (80-100); MPV 8.9 fL (7.6-11.3); RBC Red Blood Cell Count 3.84 M/uL (3.86-4.86)
[2023-01-06 10:21] LABS: Blood Morphology Comment NOT SEEN (NOT SEEN); Platelet Estimate ADEQ
[2023-01-06] MEDS: INSULIN -REGULAR HUMAN 50 UNIT/0.5 ML ML SQ SCH ×4 (11:06→22:55)
[2023-01-06] MEDS: CEFEPIME 1 GM in NA CHLORIDE 0.9% 100 ML IV SCH ×2 (11:07→21:27)
[2023-01-06] MEDS: MORPHINE 4 MG/ML SYR IV PRN ×3 (11:16→23:55)
[2023-01-06] MEDS: VANCOMYCIN 1.5 GM in NA CHLORIDE 0.9% 500 ML IVPB SCH (13:49)
--- NOTE | 2023-01-06 19:05 | P.PN ---
Subjective Date of Service: 01/06/23 Chief Complaint: Fall No acute events overnight. She reports pain in her left shoulder. She states that she is eager for her biopsy results. She denies any chest pain, palpitations, or shortness of breath. Review of Systems 10-point ROS is otherwise unremarkable Musculoskeletal: Shoulder Pain (left) Physical Examination - Vital Signs Temperature: 97.1 F Blood Pressure: 184/75 Pulse: 78 Respirations: 16 Pulse Ox (%): 98 - Physical Exam General: Alert, In no apparent distress, Oriented x3 HEENT: Sclerae nonicteric Respiratory: Clear to auscultation bilaterally, Normal air movement Cardiovascular: No edema, Regular rate/rhythm, Normal S1 S2, No gallops, No rubs, No murmurs Gastrointestinal: Normal bowel sounds, Soft and benign, Non-distended, No tenderness, No rebound, No guarding Musculoskeletal: No clubbing Integumentary: No rashes Neurological: Normal speech, Normal affect Assessment And Plan - Plan # Sepsis secondary to Klebsiella Pneumonia Left Flank Abscess +/- Escherichia Coli Urinary Tract Infection - POA # 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 - CT head/cervical spine/chest/abdomen/pelvis = "no evidence of significant acute posttraumatic findings. Mild scalp swelling along the bilateral parietal regions." - Sepsis bundle was initiated: - Lactate = 1.9 - Blood cultures x 2 obtained - Broad spectrum antibiotics started: vancomycin + cefepime - 30 mL/kg IV fluids not given due to SBP > 90 mmHg and lactate < 4 - General Surgery consulted and spoke with Dr. Rowe - recommendations appreciated - S/P excisional biopsy of right breast mass and wide excision of necrotic skin and drainage of left flank abscess - He is planning for possible radical mastectomy pending pathology results from breast mass # Hypertensive Urgency - Continue home metoprolol - Started lisniopril - Continue PRN labetalol # Hyperglycemia in Type II Diabetes Mellitus - Correction scale insulin # Traumatic Ground-Level Fall complicated by Left Humerus Fracture - Left shoulder x-ray = "depressed fracture of the greater tuberosity. Widening of the subacromial space, could be positional or related to a degree of subluxation." - Orthopedic Surgery consulted and she was evaluated by Dr. Castañeda - recommendations appreciated - Recommended conservative management and PT - PRN pain control # Hypophosphatemia # Hypomagnesemia - Replace electrolytes as needed Puma Hidalgo M.D.
[2023-01-06] MEDS: ENSURE MAX PROTEIN 330 ML LIQUID PO SCH (21:00)
[2023-01-07 04:21] LABS: Magnesium 1.7 mg/dL (1.6-2.4); Phosphorus 2.2 mg/dL (2.5-4.9); Potassium 4.1 mEq/L (3.5-5.1)
[2023-01-07] MEDS: METOPROLOL TAR 50 MG TAB PO SCH ×3 (05:26→17:10)
[2023-01-07] MEDS: VANCOMYCIN 1.5 GM in NA CHLORIDE 0.9% 500 ML IVPB SCH (05:27)
[2023-01-07] MEDS: MORPHINE 4 MG/ML SYR IV PRN ×3 (05:27→22:28)
[2023-01-07] MEDS ORDERED: MAGNESIUM SULFATE 1 gm IVPB 1 GM/100 ML BAG IV ONE (06:28)
[2023-01-07] MEDS: INSULIN -REGULAR HUMAN 50 UNIT/0.5 ML ML SQ SCH ×4 (07:30→22:24)
[2023-01-07] MEDS: lisinopriL 5 MG TAB PO SCH (08:48)
[2023-01-07] MEDS: ENSURE MAX PROTEIN 330 ML LIQUID PO SCH ×2 (08:48→21:00)
[2023-01-07] MEDS: POTASS/SODIUM PHOSPHATE 1 PKT POWD.PACK PO SCH (08:48)
[2023-01-07] MEDS ORDERED: CEFEPIME 1 GM/VIAL ONE (09:32)
[2023-01-07] MEDS ORDERED: NA CHLORIDE 0.9% 100 ML ONE (09:33)
[2023-01-07] MEDS: CEFEPIME 1 GM in NA CHLORIDE 0.9% 100 ML IV SCH ×2 (10:15→22:24)
--- NOTE | 2023-01-07 14:40 | P.PN ---
Date of Service: 01/07/23 S: Patient doing well today, not very serious pain. Mood seems to be good. We sat down again and discussed the surgery. I explained to her that for the tumor size the possibility of preoperative radiation and or chemo would be an option. She is not really interested in pursuing this. We discussed the surgery that would be involved for treating this lesion. We discussed mastectomies, axillary node dissection, the risks of bleeding infection, deformity and all that. She understands and wants to proceed. She is also anxious to get going on getting her left shoulder going again. The Oh: Dressings intact I did not take down all of them today. A: Patient is doing well, hip wound is responded well to antibiotics. They are in his right breast has an intact dressing in place. I am still awaiting the pathology. P: I have discussed with at length with the patient her underlying problems, the need for surgery, follow-up care etc. I have also discussed this with her brother and her legal guardian [nephew]. We are just waiting for the final pathology so that we can take her to the operating room. I am very confident that this is indeed a cancer I can only expect that the pathology report should be released in the morning time hence I will make her n.p.o. at midnight tonight so that once the result has been received, we can proceed with this procedure. She understands this and wants to proceed.
[2023-01-07] MEDS: LABETALOL 20 MG/4ML SYRINGE IV PRN (17:04)
--- NOTE | 2023-01-07 17:57 | P.PN ---
Subjective Date of Service: 01/07/23 Chief Complaint: Fall No acute events overnight. She denies any concerns this morning. Pathology report remains pending at this time. Dr. Rowe is considering mastectomy based on report. She denies any chest pain, palpitations, or shortness of breath. Review of Systems 10-point ROS is otherwise unremarkable General: Weakness (generalized) Physical Examination - Vital Signs Temperature: 97.2 F Blood Pressure: 176/65 Pulse: 85 Respirations: 24 Pulse Ox (%): 95 Assessment And Plan - Plan - Physical Exam General: Alert, In no apparent distress, Oriented x3 HEENT: Sclerae nonicteric Respiratory: Clear to auscultation bilaterally, Normal air movement Cardiovascular: No edema, Regular rate/rhythm, No murmurs Gastrointestinal: Soft, Non-distended, No tenderness Musculoskeletal: No clubbing Integumentary: No rashes Neurological: Normal speech, Normal affect # Sepsis secondary to Klebsiella Pneumoniae Left Flank Abscess +/- Escherichia Coli Urinary Tract Infection - POA # 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 - CT head/cervical spine/chest/abdomen/pelvis = "no evidence of significant acute posttraumatic findings. Mild scalp swelling along the bilateral parietal regions." - Sepsis bundle was initiated: - Lactate = 1.9 - Blood cultures x 2 obtained - Broad spectrum antibiotics started: vancomycin + cefepime - 30 mL/kg IV fluids not given due to SBP > 90 mmHg and lactate < 4 - General Surgery consulted and spoke with Dr. Rowe - recommendations appreciated - S/P excisional biopsy of right breast mass and wide excision of necrotic skin and drainage of left flank abscess - He is planning for possible radical mastectomy pending pathology results from breast mass - NPO after midnight # Hypertensive Urgency - Continue home metoprolol - Started lisniopril - Continue PRN labetalol # Hyperglycemia in Type II Diabetes Mellitus - Correction scale insulin # Traumatic Ground-Level Fall complicated by Left Humerus Fracture - Left shoulder x-ray = "depressed fracture of the greater tuberosity. Widening of the subacromial space, could be positional or related to a degree of subluxation." - Orthopedic Surgery consulted and she was evaluated by Dr. Castañeda - recommendations appreciated - Recommended conservative management and PT - PRN pain control # Hypophosphatemia # Hypomagnesemia - Replace electrolytes as needed Puma Hidalgo M.D.
[2023-01-08] MEDS: VANCOMYCIN 1.5 GM in NA CHLORIDE 0.9% 500 ML IVPB SCH ×2 (00:35→18:15)
[2023-01-08 04:08] LABS: Absolute Lymphocytes (CBC) 1.6 K/uL (0.7-4.9); Hematocrit 31.9 % (36.0-45.0); Lymphocytes % 13.6 % (15.3-44.8); MCV 82.9 fL (80-100); MPV 8.5 fL (7.6-11.3); RBC Red Blood Cell Count 3.84 M/uL (3.86-4.86)
[2023-01-08 04:19] LABS: Magnesium 1.8 mg/dL (1.6-2.4); Phosphorus 2.2 mg/dL (2.5-4.9)
[2023-01-08] MEDS: MORPHINE 4 MG/ML SYR IV PRN ×2 (05:22→18:17)
[2023-01-08] MEDS: METOPROLOL TAR 50 MG TAB PO SCH ×3 (05:22→18:00)
[2023-01-08] MEDS ORDERED: MAGNESIUM SULFATE 1 gm IVPB 1 GM/100 ML BAG IV ONE (06:00)
[2023-01-08] MEDS: INSULIN -REGULAR HUMAN 50 UNIT/0.5 ML ML SQ SCH ×4 (07:30→22:18)
[2023-01-08] MEDS: lisinopriL 5 MG TAB PO SCH (08:01)
[2023-01-08] MEDS: ENSURE MAX PROTEIN 330 ML LIQUID PO SCH ×2 (08:01→21:00)
[2023-01-08] MEDS: CEFEPIME 1 GM in NA CHLORIDE 0.9% 100 ML IV SCH (09:10)
[2023-01-08] MEDS ORDERED: POTASSIUM PHOS IN 0.9 % NACL 15 MMOL/250 ML BAG IV ONE (10:00)
[2023-01-08] MEDS: LABETALOL 20 MG/4ML SYRINGE IV PRN (12:22)
--- NOTE | 2023-01-08 13:26 | P.PN ---
S: No specific complaints tonight, not having any pain O: Vital signs are stable A: Patient is currently stable at this time. I had intended on doing her surgery. There is some question as to whether or not it would be covered by her health insurance. The final path report posted at 12 noon today. Having a positive result in hand, we had hoped to do a modified radical mastectomy. However due to the uncertainty of possible coverage after discussing with his family members and guardian we will postpone the surgery at this time. It is intended that she go for rehab for possible 2 to 3 weeks to improve her shoulder and her hip wound. At that point she will get back to me and we can set up her breast surgery. I have discussed with the family and the patient, they understa nd.
[2023-01-08] MEDS ORDERED: CEFEPIME 2 GM in NA CHLORIDE 0.9% 100 ML IV SCH (19:00)
--- NOTE | 2023-01-08 20:47 | P.PN ---
Subjective Date of Service: 01/08/23 Chief Complaint: Fall No acute events overnight. She denies any concerns this morning. She denies any chest pain, palpitations, or shortness of breath. Due to concern for health insurance coverage of an inpatient mastectomy, she and her family have elected to proceed with mastectomy as an outpatient once she is discharged from SNF. Review of Systems 10-point ROS is otherwise unremarkable General: Weakness (generalized) Physical Examination - Vital Signs Temperature: 96.9 F Blood Pressure: 149/72 Pulse: 80 Respirations: 18 Pulse Ox (%): 98 Assessment And Plan - Plan - Physical Exam General: Alert, In no apparent distress, Oriented x3 HEENT: Sclerae nonicteric Respiratory: Clear to auscultation bilaterally, Normal air movement Cardiovascular: No edema, Regular rate/rhythm, No murmurs Gastrointestinal: Soft, Non-distended, No tenderness Musculoskeletal: No clubbing Integumentary: No rashes Neurological: Normal speech, Normal affect # Sepsis secondary to Klebsiella Pneumoniae Left Flank Abscess +/- Escherichia Coli Urinary Tract Infection - POA # Right Breast Infiltrating Ductal Carcinoma (ER+, [place]+) Upon presentation, she met 2/4 SIRS criteria with tachycardia and leukocytosis. - CT head/cervical spine/chest/abdomen/pelvis = "no evidence of significant acute posttraumatic findings. Mild scalp swelling along the bilateral parietal regions." - Sepsis bundle was initiated: - Lactate = 1.9 - Blood cultures x 2 obtained - Broad spectrum antibiotics started: vancomycin + cefepime - 30 mL/kg IV fluids not given due to SBP > 90 mmHg and lactate < 4 - General Surgery consulted and spoke with Dr. Rowe - recommendations appreciated - S/P excisional biopsy of right breast mass and wide excision of necrotic skin and drainage of left flank abscess - Plans for mastectomy as an outpatient once discharged from SNF # Hypertensive Urgency - Continue home metoprolol - Started lisniopril - Continue PRN labetalol # Hyperglycemia in Type II Diabetes Mellitus - Correction scale insulin # Traumatic Ground-Level Fall complicated by Left Humerus Fracture - Left shoulder x-ray = "depressed fracture of the greater tuberosity. Widening of the subacromial space, could be positional or related to a degree of subluxation." - Orthopedic Surgery consulted and she was evaluated by Dr. Castañeda - recommendations appreciated - Recommended conservative management and PT - PRN pain control # Hypophosphatemia # Hypomagnesemia - Replace electrolytes as needed Puma Hidalgo M.D.
[2023-01-08] MEDS: CEFEPIME 2 GM in NA CHLORIDE 0.9% 100 ML IV SCH (20:58)
[2023-01-09] MEDS: CEFEPIME 2 GM in NA CHLORIDE 0.9% 100 ML IV SCH ×3 (02:56→16:17)
[2023-01-09] MEDS: LABETALOL 20 MG/4ML SYRINGE IV PRN ×2 (03:15→21:53)
[2023-01-09 03:46] LABS: Absolute Lymphocytes (CBC) 1.4 K/uL (0.7-4.9); Hematocrit 35.5 % (36.0-45.0); Lymphocytes % 10.4 % (15.3-44.8); MCV 83.2 fL (80-100); MPV 8.2 fL (7.6-11.3); RBC Red Blood Cell Count 4.27 M/uL (3.86-4.86)
[2023-01-09 03:55] LABS: Potassium 4.2 mEq/L (3.5-5.1)
[2023-01-09] MEDS: METOPROLOL TAR 50 MG TAB PO SCH ×2 (05:37→16:17)
[2023-01-09] MEDS: MORPHINE 4 MG/ML SYR IV PRN ×3 (05:56→17:43)
[2023-01-09] MEDS: INSULIN -REGULAR HUMAN 50 UNIT/0.5 ML ML SQ SCH ×4 (08:35→21:59)
[2023-01-09] MEDS: ENSURE MAX PROTEIN 330 ML LIQUID PO SCH ×2 (08:35→20:09)
[2023-01-09] MEDS: lisinopriL 5 MG TAB PO SCH (08:37)
[2023-01-09] MEDS: VANCOMYCIN 1.5 GM in NA CHLORIDE 0.9% 500 ML IVPB SCH (11:37)
--- NOTE | 2023-01-09 20:09 | P.PN ---
Subjective Date of Service: 01/09/23 Chief Complaint: Fall No acute events overnight. She denies any concerns this morning. She denies any chest pain, palpitations, or shortness of breath. Awaiting SNF placement. Appreciate CM assistance. Review of Systems 10-point ROS is otherwise unremarkable General: Weakness (generalized) Physical Examination - Vital Signs Temperature: 97.2 F Blood Pressure: 171/97 Pulse: 80 Respirations: 20 Pulse Ox (%): 98 Assessment And Plan - Plan - Physical Exam General: Alert, In no apparent distress, Oriented x3 HEENT: Sclerae nonicteric Respiratory: Clear to auscultation bilaterally, Normal air movement Cardiovascular: No edema, Regular rate/rhythm, No murmurs Gastrointestinal: Soft, Non-distended, No tenderness Musculoskeletal: No clubbing Integumentary: No rashes Neurological: Normal speech, Normal affect # Sepsis secondary to Klebsiella Pneumoniae Left Flank Abscess +/- Escherichia Coli Urinary Tract Infection - POA # Right Breast Infiltrating Ductal Carcinoma (ER+, [place]+) Upon presentation, she met 2/4 SIRS criteria with tachycardia and leukocytosis. - CT head/cervical spine/chest/abdomen/pelvis = "no evidence of significant acute posttraumatic findings. Mild scalp swelling along the bilateral parietal regions." - Sepsis bundle was initiated: - Lactate = 1.9 - Blood cultures x 2 obtained - Broad spectrum antibiotics started: vancomycin + cefepime - 30 mL/kg IV fluids not given due to SBP > 90 mmHg and lactate < 4 - General Surgery consulted and spoke with Dr. Rowe - recommendations appreciated - S/P excisional biopsy of right breast mass and wide excision of necrotic skin and drainage of left flank abscess - Plans for mastectomy as an outpatient once discharged from SNF # Hypertensive Urgency - Continue home metoprolol - Started lisniopril - Continue PRN labetalol # Hyperglycemia in Type II Diabetes Mellitus - Correction scale insulin # Traumatic Ground-Level Fall complicated by Left Humerus Fracture - Left shoulder x-ray = "depressed fracture of the greater tuberosity. Widening of the subacromial space, could be positional or related to a degree of subluxation." - Orthopedic Surgery consulted and she was evaluated by Dr. Castañeda - recommendations appreciated - Recommended conservative management and PT - PRN pain control # Hypophosphatemia # Hypomagnesemia - Replace electrolytes as needed 01/09/2023: No new changes today. Awaiting SNF placement. Puma Hidalgo M.D.
[2023-01-10] MEDS: CEFEPIME 2 GM in NA CHLORIDE 0.9% 100 ML IV SCH ×3 (01:02→16:27)
[2023-01-10] MEDS: MORPHINE 4 MG/ML SYR IV PRN ×2 (03:23→18:43)
[2023-01-10] MEDS: VANCOMYCIN 1.5 GM in NA CHLORIDE 0.9% 500 ML IVPB SCH (06:08)
[2023-01-10] MEDS: METOPROLOL TAR 50 MG TAB PO SCH ×2 (06:08→17:14)
[2023-01-10] MEDS: lisinopriL 5 MG TAB PO SCH (09:00)
[2023-01-10] MEDS: ENSURE MAX PROTEIN 330 ML LIQUID PO SCH ×2 (09:00→20:35)
[2023-01-10] MEDS: INSULIN -REGULAR HUMAN 50 UNIT/0.5 ML ML SQ SCH ×4 (10:15→20:34)
--- NOTE | 2023-01-10 16:38 | P.PN ---
Subjective Date of Service: 01/10/23 Chief Complaint: Fall No acute events overnight. She denies any concerns this morning. She denies any chest pain, palpitations, or shortness of breath. Updated her nephew (stated MPOA), Mr. Fox. He was in agreement with SNF followed by Oncology/Surgery evaluation in about 2 weeks. Awaiting SNF placement. Appreciate CM assistance. Review of Systems 10-point ROS is otherwise unremarkable General: Weakness (generalized) Physical Examination - Vital Signs Temperature: 97.3 F Blood Pressure: 122/65 Pulse: 69 Respirations: 12 Pulse Ox (%): 98 Assessment And Plan - Plan - Physical Exam General: Alert, In no apparent distress, Oriented x3 HEENT: Sclerae nonicteric Respiratory: Clear to auscultation bilaterally, Normal air movement Cardiovascular: No edema, Regular rate/rhythm, No murmurs Gastrointestinal: Soft, Non-distended, No tenderness Musculoskeletal: No clubbing Integumentary: No rashes Neurological: Normal speech, Normal affect # Sepsis secondary to Klebsiella Pneumoniae Left Flank Abscess +/- Escherichia Coli Urinary Tract Infection - POA # Right Breast Infiltrating Ductal Carcinoma (ER+, [place]+) Upon presentation, she met 2/4 SIRS criteria with tachycardia and leukocytosis. - CT head/cervical spine/chest/abdomen/pelvis = "no evidence of significant acute posttraumatic findings. Mild scalp swelling along the bilateral parietal regions." - Sepsis bundle was initiated: - Lactate = 1.9 - Blood cultures x 2 obtained - Broad spectrum antibiotics started: vancomycin + cefepime - 30 mL/kg IV fluids not given due to SBP > 90 mmHg and lactate < 4 - General Surgery consulted and spoke with Dr. Rowe - recommendations appreciated - S/P excisional biopsy of right breast mass and wide excision of necrotic skin and drainage of left flank abscess - Plans for mastectomy as an outpatient once discharged from SNF # Hypertensive Urgency - Continue home metoprolol - Started lisniopril - Continue PRN labetalol # Hyperglycemia in Type II Diabetes Mellitus - Correction scale insulin # Traumatic Ground-Level Fall complicated by Left Humerus Fracture - Left shoulder x-ray = "depressed fracture of the greater tuberosity. Widening of the subacromial space, could be positional or related to a degree of subluxation." - Orthopedic Surgery consulted and she was evaluated by Dr. Castañeda - recommendations appreciated - Recommended conservative management and PT - PRN pain control # Hypophosphatemia # Hypomagnesemia - Replace electrolytes as needed 01/09/2023: No new changes today. Awaiting SNF placement. 01/10/2023: Updated her nephew (stated MPOA), Mr. Fox. He was in agreement with SNF followed by Oncology/Surgery evaluation in about 2 weeks. Awaiting SNF placement. Puma Hidalgo M.D.
[2023-01-11] MEDS: VANCOMYCIN 1.5 GM in NA CHLORIDE 0.9% 500 ML IVPB SCH ×3 (00:13→20:35)
[2023-01-11] MEDS: MORPHINE 4 MG/ML SYR IV PRN ×4 (02:36→22:04)
[2023-01-11] MEDS: CEFEPIME 2 GM in NA CHLORIDE 0.9% 100 ML IV SCH ×3 (02:36→16:36)
[2023-01-11 03:43] LABS: Absolute Lymphocytes (CBC) 1.4 K/uL (0.7-4.9); Hematocrit 34.9 % (36.0-45.0); Lymphocytes % 12.5 % (15.3-44.8); MCV 83.2 fL (80-100); MPV 8.5 fL (7.6-11.3)
[2023-01-11 03:58] LABS: Potassium 4.2 mEq/L (3.5-5.1)
[2023-01-11] MEDS: METOPROLOL TAR 50 MG TAB PO SCH ×2 (06:00→18:58)
[2023-01-11] MEDS: lisinopriL 5 MG TAB PO SCH (07:46)
[2023-01-11] MEDS: INSULIN -REGULAR HUMAN 50 UNIT/0.5 ML ML SQ SCH ×4 (08:46→21:34)
[2023-01-11] MEDS: ENSURE MAX PROTEIN 330 ML LIQUID PO SCH ×2 (08:48→20:37)
--- NOTE | 2023-01-11 19:07 | P.PN ---
Subjective Date of Service: 01/11/23 Chief Complaint: Fall No acute events overnight. She denies any symptoms this morning. Awaiting SNF placement. Appreciate CM assistance. Review of Systems 10-point ROS is otherwise unremarkable General: Weakness (generalized) Physical Examination - Vital Signs Temperature: 97.3 F Blood Pressure: 181/76 Pulse: 96 Respirations: 18 Pulse Ox (%): 97 Assessment And Plan - Plan - Physical Exam General: Alert, In no apparent distress, Oriented x3 HEENT: Sclerae nonicteric Respiratory: Clear to auscultation bilaterally, Normal air movement Cardiovascular: No edema, Regular rate/rhythm, No murmurs Gastrointestinal: Soft, Non-distended, No tenderness Musculoskeletal: No clubbing Integumentary: No rashes Neurological: Normal speech, Normal affect # Sepsis secondary to Klebsiella Pneumoniae Left Flank Abscess +/- Escherichia Coli Urinary Tract Infection - POA # Right Breast Infiltrating Ductal Carcinoma (ER+, [place]+) Upon presentation, she met 2/4 SIRS criteria with tachycardia and leukocytosis. - CT head/cervical spine/chest/abdomen/pelvis = "no evidence of significant acute posttraumatic findings. Mild scalp swelling along the bilateral parietal regions." - Sepsis bundle was initiated: - Lactate = 1.9 - Blood cultures x 2 obtained - Broad spectrum antibiotics started: vancomycin + cefepime - 30 mL/kg IV fluids not given due to SBP > 90 mmHg and lactate < 4 - General Surgery consulted and spoke with Dr. Rowe - recommendations appreciated - S/P excisional biopsy of right breast mass and wide excision of necrotic skin and drainage of left flank abscess - Plans for mastectomy as an outpatient once discharged from SNF # Hypertensive Urgency - Continue home metoprolol - Started lisniopril - Continue PRN labetalol # Hyperglycemia in Type II Diabetes Mellitus - Correction scale insulin # Traumatic Ground-Level Fall complicated by Left Humerus Fracture - Left shoulder x-ray = "depressed fracture of the greater tuberosity. Widening of the subacromial space, could be positional or related to a degree of subluxation." - Orthopedic Surgery consulted and she was evaluated by Dr. Castañeda - recommendations appreciated - Recommended conservative management and PT - PRN pain control # Hypophosphatemia # Hypomagnesemia - Replace electrolytes as needed 01/09/2023: No new changes today. Awaiting SNF placement. 01/10/2023: Updated her nephew (stated MPOA), Mr. Fox. He was in agreement with SNF followed by Oncology/Surgery evaluation in about 2 weeks. Awaiting SNF placement. 01/11/2023: Awaiting SNF placement. Unlikely to occur over the weekend Puma Hidalgo M.D.
[2023-01-12] MEDS: CEFEPIME 2 GM in NA CHLORIDE 0.9% 100 ML IV SCH ×3 (01:04→17:49)
[2023-01-12] MEDS: METOPROLOL TAR 50 MG TAB PO SCH ×2 (05:46→17:50)
[2023-01-12] MEDS: ENSURE MAX PROTEIN 330 ML LIQUID PO SCH ×2 (09:00→21:24)
[2023-01-12] MEDS: INSULIN -REGULAR HUMAN 50 UNIT/0.5 ML ML SQ SCH ×4 (09:18→21:24)
[2023-01-12] MEDS: lisinopriL 5 MG TAB PO SCH (09:19)
[2023-01-12] MEDS: VANCOMYCIN 1.5 GM in NA CHLORIDE 0.9% 500 ML IVPB SCH (13:06)
[2023-01-12] MEDS: MORPHINE 4 MG/ML SYR IV PRN ×2 (14:53→21:25)
--- NOTE | 2023-01-12 15:37 | P.PN ---
Subjective Date of Service: 01/12/23 Chief Complaint: Fall No acute events overnight. She denies any symptoms this morning. Awaiting SNF placement. Unlikely to occur over the weekend. Appreciate CM assistance. Review of Systems 10-point ROS is otherwise unremarkable General: Weakness (generalized) Physical Examination - Vital Signs Temperature: 97.6 F Blood Pressure: 163/60 Pulse: 76 Respirations: 16 Pulse Ox (%): 98 Assessment And Plan - Plan - Physical Exam General: Alert, In no apparent distress, Oriented x3 HEENT: Sclerae nonicteric Respiratory: Clear to auscultation bilaterally, Normal air movement Cardiovascular: No edema, Regular rate/rhythm, No murmurs Gastrointestinal: Soft, Non-distended, No tenderness Musculoskeletal: No clubbing Integumentary: No rashes Neurological: Normal speech, Normal affect # Sepsis secondary to Klebsiella Pneumoniae Left Flank Abscess +/- Escherichia Coli Urinary Tract Infection - POA # Right Breast Infiltrating Ductal Carcinoma (ER+, [place]+) Upon presentation, she met 2/4 SIRS criteria with tachycardia and leukocytosis. - CT head/cervical spine/chest/abdomen/pelvis = "no evidence of significant acute posttraumatic findings. Mild scalp swelling along the bilateral parietal regions." - Sepsis bundle was initiated: - Lactate = 1.9 - Blood cultures x 2 obtained - Broad spectrum antibiotics started: vancomycin + cefepime - 30 mL/kg IV fluids not given due to SBP > 90 mmHg and lactate < 4 - General Surgery consulted and spoke with Dr. Rowe - recommendations appreciated - S/P excisional biopsy of right breast mass and wide excision of necrotic skin and drainage of left flank abscess - Plans for mastectomy as an outpatient once discharged from SNF # Hypertensive Urgency - Continue home metoprolol - Started lisniopril - Continue PRN labetalol # Hyperglycemia in Type II Diabetes Mellitus - Correction scale insulin # Traumatic Ground-Level Fall complicated by Left Humerus Fracture - Left shoulder x-ray = "depressed fracture of the greater tuberosity. Widening of the subacromial space, could be positional or related to a degree of subluxation." - Orthopedic Surgery consulted and she was evaluated by Dr. Castañeda - recommendations appreciated - Recommended conservative management and PT - PRN pain control # Hypophosphatemia # Hypomagnesemia - Replace electrolytes as needed 01/09/2023: No new changes today. Awaiting SNF placement. 01/10/2023: Updated her nephew (stated MPOA), Mr. Fox. He was in agreement with SNF followed by Oncology/Surgery evaluation in about 2 weeks. Awaiting SNF placement. 01/11/2023: Awaiting SNF placement. Unlikely to occur over the weekend 01/12/2023: No new changes. Awaiting SNF placement. Unlikely to occur over the weekend Puma Hidalgo M.D.
[2023-01-13] MEDS: CEFEPIME 2 GM in NA CHLORIDE 0.9% 100 ML IV SCH ×3 (01:43→16:10)
[2023-01-13] MEDS: VANCOMYCIN 1.5 GM in NA CHLORIDE 0.9% 500 ML IVPB SCH (05:36)
[2023-01-13] MEDS: METOPROLOL TAR 50 MG TAB PO SCH ×2 (06:32→17:32)
[2023-01-13] MEDS: INSULIN -REGULAR HUMAN 50 UNIT/0.5 ML ML SQ SCH ×4 (07:30→22:25)
[2023-01-13] MEDS: ENSURE MAX PROTEIN 330 ML LIQUID PO SCH ×2 (08:46→21:00)
[2023-01-13] MEDS: lisinopriL 5 MG TAB PO SCH ×2 (08:50→08:57)
[2023-01-13] MEDS: MORPHINE 4 MG/ML SYR IV PRN ×3 (08:50→22:27)
[2023-01-13 13:52] LABS: SARS-CoV-2 Antigen Rapid Res Negative (Negative)
[2023-01-13 14:15] LABS: Absolute Lymphocytes (CBC) 1.6 K/uL (0.7-4.9); Hematocrit 36.1 % (36.0-45.0); Lymphocytes % 11.4 % (15.3-44.8); MCV 82.5 fL (80-100); MPV 9.1 fL (7.6-11.3); RBC Red Blood Cell Count 4.38 M/uL (3.86-4.86)
[2023-01-13 15:55] LABS: Albumin 2.3 g/dL (3.4-5.0); Bilirubin Total 0.3 mg/dL (0.2-1.0); Magnesium 1.7 mg/dL (1.6-2.4); Potassium 4.1 mEq/L (3.5-5.1); Protein, Total 6.2 g/dL (6.4-8.2)
[2023-01-13] MEDS ORDERED: MAGNESIUM SULFATE 1 gm IVPB 1 GM/100 ML BAG IV ONE (20:00)
[2023-01-13] MEDS ORDERED: NA CHLORIDE 0.9% 250 ML ONE (21:28)
[2023-01-14] MEDS: VANCOMYCIN 1.5 GM in NA CHLORIDE 0.9% 500 ML IVPB SCH ×2 (00:25→17:24)
[2023-01-14] MEDS: CEFEPIME 2 GM in NA CHLORIDE 0.9% 100 ML IV SCH ×3 (02:17→16:44)
[2023-01-14] MEDS ORDERED: NA CHLORIDE 0.9% 0 ML ONE (02:31)
[2023-01-14 04:39] LABS: Magnesium 1.9 mg/dL (1.6-2.4); Potassium 3.7 mEq/L (3.5-5.1)
[2023-01-14 04:40] LABS: Phosphorus 1.1 mg/dL (2.5-4.9)
[2023-01-14] MEDS: METOPROLOL TAR 50 MG TAB PO SCH ×2 (06:00→17:25)
--- NOTE | 2023-01-14 06:05 | P.PN ---
Date of Service: 01/13/23 Subjective Patient appears obtunded and lethargic. Patient was advised to do outpatient mastectomy. Currently we will continue with medical management. We will check labs and may need to do a CT of the brain. She is slightly confused and she looks much more fatigued. Physical Examination - Physical Exam General: Alert, In no apparent distress, Oriented x3, Cooperative Respiratory: Clear to auscultation bilaterally, Normal air movement Cardiovascular: No edema, Regular rate/rhythm, Normal S1 S2 Gastrointestinal: Normal bowel sounds, Soft and benign, No tenderness Musculoskeletal: No clubbing, No swelling, No tenderness Integumentary: Skin breakdown, Tenderness/swelling, Erythema; breast mass Neurological: No focal deficits Assessment and Plan - Assessment/Plan --Left flank abscess and right breast mass/abscess s/p mastectomy. General surgeon consulted. Continue antibiotics. Wound cultures pending. Status post incision and debridement. Pathology with ER/TX positive cancer. Masectomy scheduled for next week pending path. --Depressed fracture of the greater tuberosity. Orthopedic surgeon consulted. Recommended placing patient on left arm sling and nonweightbearing on left arm. Range of motion as tolerated. --AMS. Hold pain meds; CT brain; Monitor labs closely --Leukocytosis. Blood cultures pending. Continue antibiotics. --Class III obesity. Likely secondary to excess calories intake. Patient counseled on weight reduction, diet and excise therapy. --Hypertension. Poorly controlled. Continue home medications and labetalol as needed. --Hyperlipidemia. Continue home medication. --OAB. Continue home medication. --CKD 2. Stable. We will continue to monitor renal functions. --DVT prophylaxis with SCDs. Patient is currently confused. She appears obtunded. She does have dystonia. We will go ahead and repeat labs. May do a CT of the head.
[2023-01-14] MEDS: INSULIN -REGULAR HUMAN 50 UNIT/0.5 ML ML SQ SCH ×5 (07:30→21:34)
[2023-01-14] MEDS ORDERED: POTASS/SODIUM PHOSPHATE 1 PKT POWD.PACK PO SCH (08:00)
[2023-01-14] MEDS ORDERED: POTASSIUM PHOS IN 0.9 % NACL 15 MMOL/250 ML BAG IV ONE (08:00)
[2023-01-14] MEDS: lisinopriL 5 MG TAB PO SCH (08:20)
[2023-01-14] MEDS: ENSURE MAX PROTEIN 330 ML LIQUID PO SCH ×2 (08:20→21:00)
[2023-01-14] MEDS: LABETALOL 20 MG/4ML SYRINGE IV PRN (08:32)
[2023-01-14] MEDS ORDERED: POTASSIUM 25 MEQ EFFERV TAB PO ONE (09:00)
[2023-01-14] MEDS: MORPHINE 4 MG/ML SYR IV PRN (09:26)
[2023-01-14] MEDS ORDERED: MORPHINE 2 MG/ML SYR IV ONE (09:29)
--- NOTE | 2023-01-14 10:55 | RAD REPORT ---
EXAM DESCRIPTION: CT - Head Brain Wo Cont - 01/14/2023 10:45 am CLINICAL HISTORY: AMS COMPARISON: HEAD BRAIN W O CONTRAST dated 06/25/2014 TECHNIQUE: All CT scans are performed using dose optimization technique as appropriate and may inclu de automated exposure control or mA/KV adjustment according to patient size. FINDINGS: No intracranial hemorrhage, hydrocephalus or extra-axial fluid collection.No areas of brai n edema or evidence of midline shift. The paranasal sinuses and mastoids are clear. The calvarium is intact. IMPRESSION: No acute intracranial abnormality.
[2023-01-14] MEDS ORDERED: CYANOCOBALAMIN 1000MCG/ML INJ IM ONE (18:44)
--- NOTE | 2023-01-14 18:44 | P.PN ---
Date of Service: 01/14/23 Subjective Patient's labs have been unremarkable except for hypophosphatemia. CT of the head is negative. We will hold off on pain medications at this time. Physical Examination - Physical Exam General: Alert, In no apparent distress, Oriented x2, lethargic but answers questions fairly appropriately Respiratory: Clear to auscultation bilaterally, Normal air movement Cardiovascular: No edema, Regular rate/rhythm, Normal S1 S2 Gastrointestinal: Normal bowel sounds, Soft and benign, No tenderness Musculoskeletal: No clubbing, No swelling, No tenderness Integumentary: Skin breakdown, Tenderness/swelling, Erythema; breast mass Neurological: No focal deficits; altered mental status Assessment and Plan - Assessment/Plan --Left flank abscess and right breast mass/abscess s/p excisional debridement --Depressed fracture of the greater tuberosity. --AMS. --Leukocytosis. --Class III obesity. --Hypertension. --Hyperlipidemia. --OAB. --CKD 2. 1. Continue with antibiotic therapy. 2. Sling for the left upper extremity 3. Outpatient mastectomy as patient with hormone receptor positive breast cancer 4. Strict blood pressure control 5. Monitor renal function 6. GI and DVT prophylaxis
[2023-01-15] MEDS: CEFEPIME 2 GM in NA CHLORIDE 0.9% 100 ML IV SCH ×3 (01:22→16:54)
[2023-01-15] MEDS: METOPROLOL TAR 50 MG TAB PO SCH ×2 (06:00→17:55)
--- NOTE | 2023-01-15 07:26 | RAD REPORT ---
EXAM DESCRIPTION: [facility] Single View01/15/2023 5:25 am CLINICAL HISTORY: Chest pain COMPARISON: 2013 FINDINGS: The lungs appear clear of acute infiltrate. The heart is normal size IMPRESSION: No acute abnormalities displayed
[2023-01-15] MEDS: INSULIN -REGULAR HUMAN 50 UNIT/0.5 ML ML SQ SCH ×4 (07:30→20:22)
[2023-01-15] MEDS: ENSURE MAX PROTEIN 330 ML LIQUID PO SCH ×2 (09:00→21:00)
[2023-01-15] MEDS: lisinopriL 5 MG TAB PO SCH (09:00)
[2023-01-15] MEDS ORDERED: CYANOCOBALAMIN 1000MCG/ML INJ IM SCH (09:00)
[2023-01-15 09:11] LABS: Absolute Lymphocytes (CBC) 1.5 K/uL (0.7-4.9); Hematocrit 36.3 % (36.0-45.0); Lymphocytes % 10.9 % (15.3-44.8); MCV 82.8 fL (80-100); MPV 8.8 fL (7.6-11.3); RBC Red Blood Cell Count 4.38 M/uL (3.86-4.86)
[2023-01-15 09:26] LABS: Albumin 2.5 g/dL (3.4-5.0); Bilirubin Total 0.5 mg/dL (0.2-1.0); C-Reactive Protein 84.9 mg/L (<3.00); Magnesium 1.7 mg/dL (1.6-2.4); Potassium 4.2 mEq/L (3.5-5.1); Protein, Total 6.5 g/dL (6.4-8.2); Thyroid Stimulating Hormone 1.98 uIU/mL (0.358-3.740)
[2023-01-15] MEDS ORDERED: MAGNESIUM SULFATE 1 gm IVPB 1 GM/100 ML BAG IV ONE (11:14)
[2023-01-15] MEDS: VANCOMYCIN 1.5 GM in NA CHLORIDE 0.9% 500 ML IVPB SCH (12:00)
[2023-01-15] MEDS: VANCOMYCIN 1.25 GM in NA CHLORIDE 0.9% 250 ML IVPB SCH (13:16)
[2023-01-15] MEDS: LABETALOL 20 MG/4ML SYRINGE IV PRN (13:16)
[2023-01-15] MEDS ORDERED: HYDROCORTISONE SUC 100 MG INJ IV ONE (15:36)
[2023-01-15] MEDS: SOD FERRIC GLUC COMPLX/SUCROSE 125 MG in NA CHLORIDE 0.9% 100 ML IV SCH (15:38)
[2023-01-15] MEDS: NA CHLORIDE 0.9% 1,000 ML IV SCH (17:54)
[2023-01-15] MEDS: ACETAMINOPHEN 500 MG TAB PO PRN (17:55)
[2023-01-15] MEDS: HYDROCORTISONE SUC 100 MG INJ IV SCH (20:09)
[2023-01-16] MEDS: CEFEPIME 2 GM in NA CHLORIDE 0.9% 100 ML IV SCH ×3 (00:43→17:02)
[2023-01-16] MEDS: ACETAMINOPHEN 500 MG TAB PO PRN ×3 (02:56→22:03)
[2023-01-16 03:10] LABS: Phosphorus 2.4 mg/dL (2.5-4.9); Potassium 4.3 mEq/L (3.5-5.1)
[2023-01-16] MEDS: LABETALOL 20 MG/4ML SYRINGE IV PRN ×2 (04:37→22:01)
[2023-01-16] MEDS: VANCOMYCIN 1.25 GM in NA CHLORIDE 0.9% 250 ML IVPB SCH (05:08)
[2023-01-16] MEDS: METOPROLOL TAR 50 MG TAB PO SCH ×2 (05:43→05:55)
[2023-01-16] MEDS: NA CHLORIDE 0.9% 1,000 ML IV SCH ×2 (05:56→20:40)
[2023-01-16] MEDS: lisinopriL 5 MG TAB PO SCH (08:47)
[2023-01-16] MEDS: INSULIN -REGULAR HUMAN 50 UNIT/0.5 ML ML SQ SCH ×4 (08:47→22:04)
[2023-01-16] MEDS: ENSURE MAX PROTEIN 330 ML LIQUID PO SCH ×2 (08:48→21:00)
[2023-01-16] MEDS: HYDROCORTISONE SUC 100 MG INJ IV SCH ×2 (08:49→22:06)
[2023-01-16] MEDS ORDERED: POTASSIUM PHOS IN 0.9 % NACL 15 MMOL/250 ML BAG IV ONE (09:00)
[2023-01-16] MEDS: SOD FERRIC GLUC COMPLX/SUCROSE 125 MG in NA CHLORIDE 0.9% 100 ML IV SCH (12:33)
--- NOTE | 2023-01-16 12:40 | RAD REPORT ---
EXAM DESCRIPTION: MRI - Brain W/Wo Cont - 01/16/2023 12:01 pm CLINICAL HISTORY: brain mets COMPARISON: Head CT 01/14/2023 TECHNIQUE: Multiplanar multisequence MRI of the brain performed before and after intravenous adminis tration of 20 mL MultiHance. FINDINGS: No evidence of acute infarct or other diffusion signal abnormality. No evidence of acute intracranial hemorrhage or abnormal extra-axial fluid collections. Mild diffuse parenchymal volume loss. Ventricular caliber otherwise within normal for age. Midline st ructures are unremarkable. Patchy subcortical and deep white matter T2/FLAIR hyperintensities, nonspecific, but suggestive of ch ronic small vessel ischemic changes. No mass effect or midline shift. No abnormal enhancement. Major vascular flow voids are preserved. Mastoid air cells and paranasal sinuses are clear. IMPRESSION: No acute intracranial process. No suspicious masses or enhancement to suggest intracrani al metastatic disease.
[2023-01-17] MEDS: NA CHLORIDE 0.9% 1,000 ML IV SCH ×2 (00:24→20:35)
[2023-01-17] MEDS: VANCOMYCIN 1.25 GM in NA CHLORIDE 0.9% 250 ML IVPB SCH ×2 (00:26→17:34)
[2023-01-17] MEDS: CEFEPIME 2 GM in NA CHLORIDE 0.9% 100 ML IV SCH ×3 (02:18→17:34)
--- NOTE | 2023-01-17 02:48 | P.PN ---
Date of Service: 01/16/23 Subjective Patient is much more awake and alert. We gave patient IV fluids and started on IV steroids. Appetite has improved. Continue with current treatment and patient should be stable for discharge to [facility] in the morning. Physical Examination - Vitals Reviewed - Physical Exam General: Alert, In no apparent distress, Oriented x3, Respiratory: Clear to auscultation bilaterally, Normal air movement Cardiovascular: No edema, Regular rate/rhythm, Normal S1 S2 Gastrointestinal: Normal bowel sounds, Soft and benign, No tenderness Musculoskeletal: No clubbing, No swelling, No tenderness Integumentary: Skin breakdown, Tenderness/swelling, Erythema; breast mass Neurological: No focal deficits; Mentation is improved. Patient awake and answering questions more appropriately today. Assessment and Plan - Assessment Assessment: --Left flank abscess and right breast mass/abscess s/p excisional debridement --Depressed fracture of the greater tuberosity. --AMS. --Leukocytosis. --Class III obesity. --Hypertension. --Hyperlipidemia. --OAB. --CKD 2. - Plan Plan: 1. Continue with antibiotic therapy. Outpatient mastectomy 2. Sling for the left upper extremity 3. Patient was lethargic and not really waking up until today. Patient should be able to go to [facility] in the morning if mentation continues to remain stable. Patient tolerating diet as well. 4. Strict blood pressure control 5. Monitor renal function 6. Continue with PT 7. GI and DVT prophylaxis
--- NOTE | 2023-01-17 02:51 | P.PN ---
Date of Service: 01/15/23 Subjective Patient is still lethargic. We will start IV fluids. Continue with current treatment and patient should be stable for discharge to [facility] in the morning. Physical Examination - Vitals Reviewed - Physical Exam General: Alert, In no apparent distress, Oriented x1-2, Respiratory: Clear to auscultation bilaterally, Normal air movement Cardiovascular: No edema, Regular rate/rhythm, Normal S1 S2 Gastrointestinal: Normal bowel sounds, Soft and benign, No tenderness Musculoskeletal: No clubbing, No swelling, No tenderness Integumentary: Skin breakdown, Minimal tenderness/swelling, erythema; breast mass Neurological: No focal deficits; Mentation is improved. Patient awake and answering questions more appropriately today. Assessment and Plan - Assessment Assessment: --Left flank abscess and right breast mass/abscess s/p excisional debridement --Depressed fracture of the greater tuberosity. --AMS. --Leukocytosis. --Class III obesity. --Hypertension. --Hyperlipidemia. --OAB. --CKD 2. - Plan Plan: 1. Continue with antibiotic therapy. Outpatient mastectomy 2. Sling for the left upper extremity 3. Patient is lethargic . Patient should be able to go to [facility] if mentation improves; PT and advance diet 4. Strict blood pressure control 5. Monitor renal function 6. GI and DVT prophylaxis
[2023-01-17] MEDS: METOPROLOL TAR 50 MG TAB PO SCH ×2 (05:44→17:33)
[2023-01-17] MEDS: ACETAMINOPHEN 500 MG TAB PO PRN ×2 (05:44→15:52)
[2023-01-17 07:31] LABS: Absolute Lymphocytes (CBC) 1.5 K/uL (0.7-4.9); Hematocrit 33.4 % (36.0-45.0); MCV 83.5 fL (80-100); MPV 9.2 fL (7.6-11.3); RBC Red Blood Cell Count 3.99 M/uL (3.86-4.86)
[2023-01-17 07:52] LABS: Albumin 2.3 g/dL (3.4-5.0); Bilirubin Total 0.4 mg/dL (0.2-1.0); Potassium 3.6 mEq/L (3.5-5.1)
[2023-01-17] MEDS: INSULIN -REGULAR HUMAN 50 UNIT/0.5 ML ML SQ SCH ×4 (08:52→20:36)
[2023-01-17] MEDS: HYDROCORTISONE SUC 100 MG INJ IV SCH ×2 (08:53→20:36)
[2023-01-17] MEDS: lisinopriL 5 MG TAB PO SCH (08:53)
[2023-01-17] MEDS: ENSURE MAX PROTEIN 330 ML LIQUID PO SCH ×2 (08:53→20:37)
[2023-01-17] MEDS: SOD FERRIC GLUC COMPLX/SUCROSE 125 MG in NA CHLORIDE 0.9% 100 ML IV SCH (12:26)
[2023-01-18] MEDS: ACETAMINOPHEN 500 MG TAB PO PRN ×3 (00:32→17:04)
[2023-01-18] MEDS: CEFEPIME 2 GM in NA CHLORIDE 0.9% 100 ML IV SCH ×3 (00:32→17:00)
[2023-01-18] MEDS ORDERED: CYCLOBENZAPRINE 10 MG TAB PO ONE (01:36)
[2023-01-18] MEDS: METOPROLOL TAR 50 MG TAB PO SCH ×2 (06:10→17:03)
[2023-01-18] MEDS: INSULIN -REGULAR HUMAN 50 UNIT/0.5 ML ML SQ SCH ×4 (07:30→22:25)
[2023-01-18] MEDS: ENSURE MAX PROTEIN 330 ML LIQUID PO SCH ×2 (08:55→21:00)
[2023-01-18] MEDS: HYDROCORTISONE SUC 100 MG INJ IV SCH ×2 (08:56→22:26)
[2023-01-18] MEDS: lisinopriL 5 MG TAB PO SCH (08:59)
[2023-01-18] MEDS: SOD FERRIC GLUC COMPLX/SUCROSE 125 MG in NA CHLORIDE 0.9% 100 ML IV SCH (12:22)
[2023-01-18] MEDS: NA CHLORIDE 0.9% 1,000 ML IV SCH (12:40)
[2023-01-18] MEDS: VANCOMYCIN 1.25 GM in NA CHLORIDE 0.9% 250 ML IVPB SCH (15:07)
[2023-01-18] MEDS: GABAPENTIN 300 MG CAP PO SCH (22:25)
[2023-01-19] MEDS: CEFEPIME 2 GM in NA CHLORIDE 0.9% 100 ML IV SCH ×3 (01:45→17:13)
[2023-01-19] MEDS: NA CHLORIDE 0.9% 1,000 ML IV SCH (02:00)
[2023-01-19 04:34] LABS: Absolute Lymphocytes (CBC) 1.1 K/uL (0.7-4.9); Hematocrit 31.3 % (36.0-45.0); Lymphocytes % 14.8 % (15.3-44.8); MPV 8.5 fL (7.6-11.3); RBC Red Blood Cell Count 3.72 M/uL (3.86-4.86)
[2023-01-19 04:52] LABS: Magnesium 1.8 mg/dL (1.6-2.4); Potassium 3.7 mEq/L (3.5-5.1)
[2023-01-19] MEDS: ACETAMINOPHEN 500 MG TAB PO PRN (06:43)
[2023-01-19] MEDS: METOPROLOL TAR 50 MG TAB PO SCH ×2 (06:43→17:12)
[2023-01-19] MEDS: INSULIN -REGULAR HUMAN 50 UNIT/0.5 ML ML SQ SCH ×4 (07:56→21:15)
[2023-01-19] MEDS: HYDROCORTISONE SUC 100 MG INJ IV SCH ×2 (07:57→21:15)
[2023-01-19] MEDS: lisinopriL 5 MG TAB PO SCH (08:01)
[2023-01-19] MEDS: ENSURE MAX PROTEIN 330 ML LIQUID PO SCH ×2 (08:04→21:00)
[2023-01-19] MEDS: Mupirocin NASAL 2 APPL/1 GM TUBE NAS SCH ×2 (08:04→21:15)
[2023-01-19] MEDS ORDERED: NA CHLORIDE 0.9% 1,000 ML IV SCH (11:13)
--- NOTE | 2023-01-19 11:17 | P.PN ---
Date of Service: 01/18/23 Subjective Pt is more alert. She is following commands. She is trying to eat better. However she is still complaining of weakness in the lower extremity. She starts having pain in the legs. She keeps having pain in the lower extremity Physical Examination - Vitals Reviewed - Physical Exam General: Alert, In no apparent distress, Oriented x1-2, Respiratory: Clear to auscultation bilaterally Cardiovascular: Regular rate/rhythm, Normal S1 S2 Gastrointestinal: Soft and benign, No tenderness, Normal bowel sounds, Musculoskeletal: No clubbing, No swelling, Diffusely tender mainly in the lower extremity Integumentary: Skin breakdown, Minimal tenderness/swelling, erythema; breast mass Neurological: No focal deficits; Mentation is improved. AAO x 3; Patient awake and answering questions more appropriately today. Still with generalized weakness Assessment and Plan - Assessment Assessment: 1. Left flank abscess and right breast mass/abscess s/p excisional debridement 2. Depressed fracture of the greater tuberosity. 3. AMS. 4. Leukocytosis. 5. Class III obesity. 6 .Hypertension. 7. Hyperlipidemia. 8. OAB. 9. CKD 2. - Plan Plan: 1. Continue with antibiotic therapy. Outpatient mastectomy; 2. Sling for the left upper extremity 3. Patient is lethargic . Pt should be able to go to [facility] if mentation improves; PT and advance diet 4. Strict BP control 5. Monitor renal function 6. GI and DVT prophylaxis
--- NOTE | 2023-01-19 11:20 | P.PN ---
Date of Service: 01/17/23 Subjective Pt is more awake and alert. She is still complaining of weakness in the lower extremity. She is having pain in the legs. She keeps having pain in the lower extremity Physical Examination - Vitals Reviewed - Physical Exam General: Alert, In no apparent distress, Oriented x3, Respiratory: Clear to auscultation bilaterally Cardiovascular: Regular rate/rhythm, Normal S1 S2 Gastrointestinal: Soft and benign, No tenderness, Normal bowel sounds, Musculoskeletal: No clubbing, No swelling, Diffusely tender mainly in the lower extremity Integumentary: Skin breakdown, Minimal tenderness/swelling, erythema; breast mass Neurological: No focal deficits; Mentation is improved. AAO x 3; Patient awake and answering questions more appropriately today. Still with generalized weakness Assessment and Plan - Assessment Assessment: 1. Left flank abscess and right breast mass/abscess s/p excisional debridement 2. Depressed fracture of the greater tuberosity. 3. AMS. 4. Leukocytosis. 5. Class III obesity. 6 .Hypertension. 7. Hyperlipidemia. 8. OAB. 9. CKD 2. - Plan Plan: 1. Continue with antibiotic therapy-may change to oral abx soon. Outpatient mastectomy; 2. Sling for the left upper extremity. Continue with meds for pain control 3. More awake and alert 4. Monitor hemodynamics and BS closely 5. Monitor renal function 6. GI and DVT prophylaxis
--- NOTE | 2023-01-19 11:21 | P.PN ---
Date of Service: 01/19/23 Subjective Patient continues to do well. Patient denies any new complaints. Clinical symptoms are improving. Physical Examination - Vitals Reviewed - Physical Exam General: Alert, In no apparent distress, Oriented x3, Respiratory: Clear to auscultation bilaterally Cardiovascular: Regular rate/rhythm, Normal S1 S2 Gastrointestinal: Soft and benign, No tenderness, Normal bowel sounds, Musculoskeletal: No clubbing, No swelling, Diffusely tender mainly in the lower extremity Integumentary: Skin breakdown, Minimal tenderness/swelling, erythema; breast mass Neurological: AAO x 3; Still with generalized weakness Assessment and Plan - Assessment Assessment: 1. Left flank abscess and right breast mass/abscess s/p excisional debridement 2. Depressed fracture of the greater tuberosity. 3. AMS. 4. Leukocytosis. 5. Class III obesity. 6 .Hypertension. 7. Hyperlipidemia. 8. OAB. 9. CKD 2. - Plan Plan: 1. Continue with antibiotic therapy-may change to oral abx soon. Outpatient mastectomy; 2. Sling for the left upper extremity. Continue with meds for pain control 3. More awake and alert; rgeneralized pain mainly in the lower extremity; will image her back and hip area. 4. Monitor hemodynamics and BS closely 5. Monitor renal function 6. GI and DVT prophylaxis
[2023-01-19] MEDS: SOD FERRIC GLUC COMPLX/SUCROSE 125 MG in NA CHLORIDE 0.9% 100 ML IV SCH (11:48)
[2023-01-19] MEDS: HYDROCODONE/APAP 7.5/325 MG TAB PO PRN ×2 (14:57→21:15)
--- NOTE | 2023-01-19 15:32 | RAD REPORT ---
EXAM DESCRIPTION: CT - Pelvis Wo Cont - 01/19/2023 1:30 pm CLINICAL HISTORY: diffuse pain; s/p fall; breast cancer;decrease ROM, bilat COMPARISON: Spine Lumbar Wo Con dated 01/19/2023 TECHNIQUE: Thin cut axial CT imaging of the pelvis was performed without IV contrast. Multiplanar re formats were generated and reviewed. All CT scans are performed using dose optimization technique as appropriate and may include automated exposure control or mA/KV adjustment according to patient size. FINDINGS: Nonspecific presacral edema. No evidence of pelvic abnormal fluid collections in the pelvi s or included aspect of the perineum, within limits of noncontrast evaluation. Fibroid uterus with calcifications. Moderate to large stool burden in the rectal vault. Sigmoid diverticulosis. Chapman catheter present wi thin nondistended bladder. Small umbilical hernia containing fat. No suspicious bony findings. No evidence of acute fracture. Degenerative changes of the lumbar spine are evaluated on separate CT lumbar spine. IMPRESSION: No acute osseous abnormality. Nonspecific presacral edema. This is nonspecific, and could be related to stercoral proctitis given s tool retention. Other incidental findings as above.
--- NOTE | 2023-01-19 15:51 | RAD REPORT ---
EXAM DESCRIPTION: CT - Spine Lumbar Wo Con - 01/19/2023 1:30 pm CLINICAL HISTORY: diffuse pain; s/p fall; breast cancer COMPARISON: No comparisons TECHNIQUE: Axial noncontrast CT imaging of the lumbar spine was performed with coronal and sagittal re-formatted images. All CT scans are performed using dose optimization technique as appropriate and may include automated exposure control or mA/KV adjustment according to patient size. FINDINGS: No acute lumbar spine fracture seen. No aggressive marrow pattern or malalignment. Multilevel lumbar spine degenerative changes. These include disc osteophyte complexes at multiple lev els, resulting in suggestion of at least mild canal stenosis at L2-3 and L3-4. Similar findings with additional left subarticular/foraminal disc protrusion noted at L4-5, contributing to [id number] e canal stenosis with additional left lateral recess narrowing. Bony neural foraminal narrowing noted at multiple levels, moderate to severe bilaterally at L4-5, and on the right at L5-S1. Paraspinal tissues are normal in thickness. No paraspinal abscess or hematoma seen. Intervertebral disc disease assessment is inherently limited by CT. Within these limitations, no high -grade canal stenosis suspected. Cholelithiasis. IMPRESSION: No acute osseous abnormality. Multilevel lumbar spine degenerative changes as above. Consider MRI follow-up for assessment of disc disease and neural involvement, if clinically indicated .
[2023-01-19] MEDS: MORPHINE 2 MG/ML SYR IV PRN (19:23)
[2023-01-19] MEDS: GABAPENTIN 300 MG CAP PO SCH (21:15)
[2023-01-20] MEDS ORDERED: VANCOMYCIN 1.25 GM in NA CHLORIDE 0.9% 250 ML IVPB SCH ×2
[2023-01-20] MEDS: CEFEPIME 2 GM in NA CHLORIDE 0.9% 100 ML IV SCH ×2 (01:00→08:42)
[2023-01-20] MEDS: MORPHINE 2 MG/ML SYR IV PRN (01:04)
--- NOTE | 2023-01-20 02:39 | P.PN ---
Date of Service: 01/20/23 Subjective Patient having complaints of pain in her lower extremities. This started last night after the try to put SCDs. CT imaging of the lumbar spine and pelvic region did not reveal any metastatic disease. We will go ahead and get a venous Doppler to rule out DVT. Physical Examination - Vitals Reviewed - Physical Exam General: Alert, In no apparent distress, Oriented x3, Respiratory: Clear to auscultation bilaterally Cardiovascular: Regular rate/rhythm, Normal S1 S2 Gastrointestinal: Soft and benign, No tenderness, Normal bowel sounds, Musculoskeletal: No clubbing, No swelling, Diffusely tender mainly in the lower extremity Integumentary: Skin breakdown, Minimal tenderness/swelling, erythema; breast mass Neurological: AAO x 3; Still with generalized weakness Assessment and Plan - Assessment Assessment: 1. Left flank abscess and right breast mass/abscess s/p excisional debridement 2. Depressed fracture of the greater tuberosity. 3. AMS. 4. Leukocytosis. 5. Class III obesity. 6 .Hypertension. 7. Hyperlipidemia. 8. OAB. 9. CKD 2. - Plan Plan: 1. Continue with antibiotic therapy-may change to oral abx soon. Outpatient mas tectomy; 2. Sling for the left upper extremity. Continue with meds for pain control 3. More awake and alert; rgeneralized pain mainly in the lower extremity; will image her back and hip area. 4. Monitor hemodynamics and BS closely 5. Monitor renal function 6. GI and DVT prophylaxis
[2023-01-20] MEDS: HYDROCODONE/APAP 7.5/325 MG TAB PO PRN ×2 (03:23→10:12)
[2023-01-20] MEDS: METOPROLOL TAR 50 MG TAB PO SCH (06:00)
[2023-01-20 06:50] LABS: Albumin 2.3 g/dL (3.4-5.0); Bilirubin Total 0.3 mg/dL (0.2-1.0); C-Reactive Protein 16.4 mg/L (<3.00); Magnesium 1.7 mg/dL (1.6-2.4); Potassium 3.7 mEq/L (3.5-5.1); Protein, Total 5.6 g/dL (6.4-8.2)
--- NOTE | 2023-01-20 07:57 | RAD REPORT ---
EXAM DESCRIPTION: USExtrem Venous W Compress Bil01/20/2023 5:48 am CLINICAL HISTORY: Leg pain COMPARISON: none FINDINGS: The right common femoral, superficial femoral, greater saphenous, popliteal and posterior tibial veins are compressible and demonstrate augmentation. Doppler demonstrates good flow Echogenic material consistent with acute thrombus at the junction of the left greater saphenous/left common femoral vein. The vein is partially compressible. Left superficial femoral, popliteal and posterior veins are patent Grayscale, color and spectral analysis performed on all vessels IMPRESSION: Nonocclusive acute thrombus at the junction of the left greater saphenous/left common fe moral veins
[2023-01-20] MEDS: Mupirocin NASAL 2 APPL/1 GM TUBE NAS SCH (08:42)
[2023-01-20] MEDS: HYDROCORTISONE SUC 100 MG INJ IV SCH (08:42)
[2023-01-20] MEDS: lisinopriL 5 MG TAB PO SCH (08:44)
[2023-01-20] MEDS: INSULIN -REGULAR HUMAN 50 UNIT/0.5 ML ML SQ SCH ×2 (08:45→12:12)
[2023-01-20] MEDS: ENSURE MAX PROTEIN 330 ML LIQUID PO SCH ×2 (08:46→08:50)
[2023-01-20] MEDS ORDERED: POTASSIUM CL SA 10 MEQ TAB PO ONE (09:00)
[2023-01-20] MEDS ORDERED: MAGNESIUM SULFATE 1 gm IVPB 1 GM/100 ML BAG IV ONE (09:00)
[2023-01-20 10:11] LABS: Absolute Lymphocytes (CBC) 1.6 K/uL (0.7-4.9); Hematocrit 32.1 % (36.0-45.0); Lymphocytes % 17.8 % (15.3-44.8); MCV 84.8 fL (80-100); MPV 9.6 fL (7.6-11.3); RBC Red Blood Cell Count 3.78 M/uL (3.86-4.86)
[2023-01-20 10:41] LABS: SARS-CoV-2 Antigen Rapid Res Negative (Negative)
[2023-01-20 11:46] VITALS: O2SAT 96
[2023-01-20] MEDS: SOD FERRIC GLUC COMPLX/SUCROSE 125 MG in NA CHLORIDE 0.9% 100 ML IV SCH (12:12)
--- NOTE | 2023-01-20 12:23 | RAD REPORT ---
EXAM DESCRIPTION: RAD - Chest Single View - 01/19/2023 12:28 am CLINICAL HISTORY: The patient is 77 years old and is Female; S/P PICC INSERTION TECHNIQUE: Frontal view of the chest. COMPARISON: No relevant prior studies available. FINDINGS: LUNGS: Unremarkable. No consolidation. PLEURAL SPACE: Unremarkable. No pneumothorax. HEART: Unremarkable. No cardiomegaly. MEDIASTINUM: Unremarkable. BONES/JOINTS: Unremarkable. TUBES, LINES AND DEVICES: A left upper extremity PICC is present with the tip at the SVC/RA junct ion. UPPER ABDOMEN: Unremarkable as visualized. IMPRESSION: A left upper extremity PICC is present with the tip at the SVC/RA junction. Electronically signed by: Mira Villatoro MD 01/19/2023 2:06 AM CDT Due to temporary technical issues with the PACS/Fluency reporting system, reports are being signed by the in house radiologist without review as a courtesy to ensure prompt reporting. The interpreting r adiologist is fully responsible for the content of the report.
[2023-01-20 12:44] VITALS: BP 169/82; TEMP 97.4
== END 2023-01-20 14:15 | DRG 853 ==
LOC: ER 08:37 → ERHOLD 13:10 → 2ND 15:39
PROVIDERS: ADMIT Hospitalist; ATTEND Hospitalist
PROC: 0J990ZZ Drainage of Buttock Subcutaneous Tissue and Fascia, Open Approach (ICD-10-PCS; 2023-01-01)
PROC: 0HBT0ZX Excision of Right Breast, Open Approach, Diagnostic (ICD-10-PCS; principal; 2023-01-01 13:15)
PROC: 02HV33Z Insertion of Infusion Device into Superior Vena Cava, Percutaneous Approach (ICD-10-PCS; 2023-01-18)
DX: A41.51 Sepsis due to Escherichia coli [E. coli] (principal); G92.8 Other toxic encephalopathy; S42.252A Displaced fracture of greater tuberosity of left humerus, initial encounter for closed fracture; L02.211 Cutaneous abscess of abdominal wall; N39.0 Urinary tract infection, site not specified; Z68.41 Body mass index [BMI] 40.0-44.9, adult; L02.416 Cutaneous abscess of left lower limb; C50.911 Malignant neoplasm of unspecified site of right female breast; E66.01 Morbid (severe) obesity due to excess calories; E78.5 Hyperlipidemia, unspecified; E86.0 Dehydration; N32.81 Overactive bladder; I12.9 Hypertensive chronic kidney disease with stage 1 through stage 4 chronic kidney disease, or unspecified chronic kidney disease; N18.2 Chronic kidney disease, stage 2 (mild); E11.22 Type 2 diabetes mellitus with diabetic chronic kidney disease; E11.65 Type 2 diabetes mellitus with hyperglycemia; E83.39 Other disorders of phosphorus metabolism; E83.42 Hypomagnesemia; I16.0 Hypertensive urgency; E78.00 Pure hypercholesterolemia, unspecified; D72.829 Elevated white blood cell count, unspecified; S09.90XA Unspecified injury of head, initial encounter; B96.1 Klebsiella pneumoniae [K. pneumoniae] as the cause of diseases classified elsewhere; W01.0XXA Fall on same level from slipping, tripping and stumbling without subsequent striking against object, initial encounter; Y93.9 Activity, unspecified; Y92.9 Unspecified place or not applicable; Y99.9 Unspecified external cause status; Z23 Encounter for immunization; Z17.0 Estrogen receptor positive status [ER+]; Z88.5 Allergy status to narcotic agent; Z79.84 Long term (current) use of oral hypoglycemic drugs; Z79.899 Other long term (current) drug therapy; Z91.040 Latex allergy status; Z20.822 Contact with and (suspected) exposure to COVID-19
CPT/HCPCS: 36415; 36569; 51702; 70450; 70553; 71045; 71250; 72125; 72131; 72192; 80048; 80053; 80202; 81001; 82140; 82533; 82550; 82607; 82947; 83540; 83605; 83735; 83880; 84100; 84145; 84439; 84443; 85025; 85379; 85610; 85730; 86140; 87040; 87070; 87075; 87077; 87086; 87088; 87186; 87205; 87811; 88305; 90471; 90732; 93005; 93970; 94760; 97110; 97161; 97530; 99285; A9577; J0692; J1720; J1815; J2001; J2250; J2270; J2405; J2704; J2916; J3010; J3420; J3475; J7030; J7040; J7050

== ENCOUNTER 2023-02-12 16:58 | Inpatient (IN) | payer OTHER ==
[2023-02-12] MEDS ORDERED: HYDROMORPHONE HCL 1 MG/ML INJ ONE (17:28)
[2023-02-12] MEDS ORDERED: ONDANSETRON 4 MG (ODT) TAB ONE (17:28)
[2023-02-12 18:23] LABS: Hematocrit 43.6 % (36.0-45.0); Lymphocytes % 29.6 % (15.3-44.8); MCV 84.7 fL (80-100); MPV 8.9 fL (7.6-11.3); RBC Red Blood Cell Count 5.15 M/uL (3.86-4.86)
[2023-02-12 18:37] LABS: Albumin 2.6 g/dL (3.4-5.0); Bilirubin Direct 0.3 mg/dL (0-0.2); Bilirubin Indirect, Calculated 0.2 mg/dL (0.2-0.8); Bilirubin Total 0.5 mg/dL (0.2-1.0); Magnesium 1.7 mg/dL (1.6-2.4); Potassium 4.1 mEq/L (3.5-5.1); Protein, Total 6.6 g/dL (6.4-8.2)
--- NOTE | 2023-02-12 18:42 | RAD REPORT ---
EXAM DESCRIPTION: RAD - Chest Single View - 02/12/2023 6:32 pm CLINICAL HISTORY: right sided chest pain COMPARISON: Chest Single View dated 01/19/2023; Chest Single View dated 01/15/2023; CHEST SINGLE VIEW dated 06/25/2014; CHEST SINGLE VIEW dated 03/18/2013 FINDINGS: Lines: None. Lungs: Mild ill-defined opacities present in the right lung. Pleural: No significant pleural effusions or pneumothorax. Cardiac: The heart size is within normal limits. Mediastinum: Within normal limits. Bones: No acute fractures. Other: None IMPRESSION: Mild ill-defined of right sided airspace opacity could reflect infection or inflammation .
--- NOTE | 2023-02-12 18:50 | P.HP ---
Certification for Inpatient Patient admitted to: Observation With expected LOS: <2 Midnights Patient will require the following post-hospital care: None Practitioner: I am a practitioner with admitting privileges, knowledge of patient current condition, hospital course, and medical plan of care. Services: Services provided to patient in accordance with Admission requirements found in Title 42 Section 412.3 of the Code of Federal Regulations Patient History Date of Service: 02/12/23 Reason for admission: Generalized pain History of Present Illness: 77 yrs old Female with a past medical history significant for DM 2, hyperlipidemia, morbid obesity, hypertensionpresents to ER via EMS with complaints of Pain. She reports chest pain that is located primarily in the substernal, that does not radiate. She denies shortness of breath, fever, cough, NVD, abdominal pain, dysuria. Medical record record reviewed. ED course . Allergies codeine [Codeine] Allergy (Intermediate, Verified 06/26/14 03:48) Disorientation latex Allergy (Verified 06/26/14 03:48) Hives Home Medications: oxyBUTYnin chloride [Ditropan*] 5 mg PO BEDTIME 03/18/13 Simvastatin [Zocor*] 20 mg PO BEDTIME #30 tablet 03/19/13 Gabapentin 300 mg PO BEDTIME 12/31/22 Ensure Max Protein 330 ml PO BID #60 can 01/17/23 Insulin Degludec [Tresiba Flextouch U-200] 10 unit SQ DAILY #2 vial 01/17/23 Metoprolol Tartrate [Lopressor*] 50 mg PO BID 6AM 6PM #60 tab 01/17/23 levoFLOXacin [Levaquin] 500 mg PO DAILY #7 tab 01/17/23 predniSONE [Deltasone] 20 mg PO BID #11 tab 01/17/23 Apixaban [Eliquis] 5 mg PO BID #60 tablet 01/20/23 Hydrocodone 7.5/APAP 325 [[place] 7.5/325 mg*] 1 tab PO Q6H PRN #30 tab 01/20/23 - Past Medical/Surgical History Diabetic: Yes -: DM, HTN, HYPERLIPIEMIA -: tonsillectomy -: appy -: CATARACT REMOVAL - Family History Mother -: Heart disease, Diabetes Notes: CHF Brother -: Hypertension, Diabetes Notes: HTN AND HYPERLIPIDEMIA. Sister -: Cancer Notes: THYROID CANCER. - Social History Alcohol use: No CD- Drugs: No Caffeine use: Yes Physical Examination - Studies Laboratory Data (last 24 hrs) 02/12/23 18:09: WBC 6.90, Hgb 13.7, Hct 43.6, Plt Count 211 02/12/23 18:09: Sodium 132 L, Potassium 4.1, BUN 18, Creatinine 0.52 L, Glucose 288 H, Magnesium 1.7, Total Bilirubin 0.5, AST 16, ALT 21, Alkaline Phosphatase 92 Assessment and Plan - Plan Assessment: Atypical chest apin Prior Left flank abscess and right breast mass/abscess s/p excisional debridement Class III obesity. Hypertension. Hyperlipidemia. OAB. CKD 2. - Plan Chest pain, tele, Card consult, trend trop, BNP HTN, resume home meds HLD, resume home meds CKD 1 trend kidney function GI and DVT prophylaxis Diet Card Full Code DVT Discharge Plan: [facility] Plan to discharge in: 24 Hours - Advance Directives Does patient have a Living Will: No Does patient have a Durable POA for Healthcare: Yes - Code Status/Comfort Care Code Status Assessed: Yes Code Status: Full Code Physician Review: Patient Assessed, Agree with Above Assessment and Plan Critical Care: Yes Time Spent Managing Pts Care (In Minutes): 55
--- NOTE | 2023-02-12 18:51 | EDPHYS ---
Physician Documentation [facility] Name: Kandice Dewey Age: 77 yrs Sex: Female : 1945 Arrival Date: 02/12/2023 Time: 16:58 Bed 14 Private MD: RITU Physician Chuy Pena HPI: 02/12 17:15 This 77 yrs old Female presents to ER via EMS with complaints of Pain All Over. jmm 17:15 The patient or guardian reports chest pain that is located primarily in the substernal [facility] area. Onset: gradually, today. The pain does not radiate. Associated signs and symptoms: Pertinent negatives: shortness of breath. Patient complains of chest pain beginning earlier today not relieved with home medications. . Historical: - Allergies: 17:07 Codeine; hb 17:07 Latex, Natural Rubber; hb - PMHx: 17:07 diabetes mellitus; Hypercholesterolemia; Hypertensive disorder; hb - Immunization history:: Adult Immunizations up to date. - Social history:: Smoking status: Patient denies any tobacco usage or history of. ROS: 17:15 Constitutional: Negative for fever, chills, and weight loss. jmm 17:15 Cardiovascular: Positive for chest pain. 17:15 All other systems are negative. Exam: 17:15 Constitutional: This is a well developed, well nourished patient who is awake, alert, jmm and in no acute distress. Head/Face: atraumatic. Eyes: EOMI, no conjunctival erythema appreciated ENT: Moist Mucus Membranes Neck: Trachea midline, Supple Chest/axilla: Normal chest wall appearance and motion. Cardiovascular: Regular rate and rhythm. No edema appreciated Respiratory: Normal respirations, no respiratory distress appreciated Abdomen/GI: Non distended Back: Normal ROM Skin: General appearance color normal MS/ Extremity: Moves all extremities, no obvious deformities appreciated, no edema noted to the lower extremities Neuro: Awake and alert Psych: Behavior is normal, Mood is normal, Patient is cooperative and pleasant Vital Signs: 17:05 BP 124 / 89; Pulse 90; Resp 16; Temp 98.1(O); Pulse Ox 99% on R/A; Weight 108.86 kg; hb Height 5 ft. 3 in. ; Pain 8/10; 18:24 BP 132 / 77; Pulse 70; Resp 22 S; Pulse Ox 100% on R/A; kc6 17:05 Body Mass Index 42.51 (108.86 kg, 160.02 cm) hb 17:05 Pain Scale: Adult hb MDM: 17:15 Patient medically screened. [facility] 18:49 The patient was given aspirin in the Emergency Department. Data reviewed: vital signs, [facility] nurses notes, lab test result(s), EKG, radiologic studies. Counseling: I had a detailed discussion with the patient and/or guardian regarding: the historical points, exam findings, and any diagnostic results supporting the discharge/admit diagnosis, lab results, radiology results, the need for further work-up and treatment in the hospital. ED course: Discussed with MARIAJOSE Benz whom accepted the patient to Dr. Quiroga's service. . 02/12 17:52 Order name: Basic Metabolic Panel; Complete Time: 18:43 [facility] 02/12 17:52 Order name: CBC with Diff; Complete Time: 18:26 [facility] 02/12 17:52 Order name: LFT's; Complete Time: 18:43 [facility] 02/12 17:52 Order name: Magnesium; Complete Time: 18:43 [facility] 02/12 17:52 Order name: NT PRO-BNP; Complete Time: 18:43 [facility] 02/12 17:52 Order name: PT-INR [facility] 02/12 17:52 Order name: Troponin HS; Complete Time: 18:43 [facility] 02/12 18:46 Order name: Blood Culture Adult (2) [facility] 02/12 18:46 Order name: Lactate w/ 2H reflex if indic.; Complete Time: 20:34 [facility] 02/12 19:13 Order name: Lactate w/ 2H reflex if indic. [facility] 02/12 19:13 Order name: Urinalysis w/ reflexes [facility] 02/12 19:14 Order name: Basic Metabolic Panel [facility] 02/12 19:14 Order name: Basic Metabolic Panel [facility] 02/12 19:14 Order name: CBC with Automated Diff [facility] 02/12 19:14 Order name: CBC with Automated Diff [facility] 02/12 19:14 Order name: Phosphorus [facility] 02/12 19:14 Order name: Phosphorus [facility] 02/12 19:14 Order name: Troponin High Sensitivity [facility] 02/12 19:14 Order name: Troponin High Sensitivity; Complete Time: 20:51 [facility] 02/12 19:15 Order name: Troponin High Sensitivity [facility] 02/12 19:15 Order name: Troponin High Sensitivity [facility] 02/12 17:52 Order name: XRAY Chest (1 view); Complete Time: 18:45 [facility] 02/12 17:52 Order name: EKG; Complete Time: 17:53 [facility] 02/12 19:13 Order name: Heart Healthy [facility] 02/12 19:13 Order name: NPO [facility] 02/12 19:13 Order name: Physical Therapy Consult [facility] 02/12 17:52 Order name: Cardiac monitoring; Complete Time: 18:12 [facility] 02/12 17:52 Order name: EKG - Nurse/Tech; Complete Time: 18:23 [facility] 02/12 17:52 Order name: IV Saline Lock; Complete Time: 18:12 [facility] 02/12 17:52 Order name: Labs collected and sent; Complete Time: 18:12 [facility] 02/12 17:52 Order name: O2 Per Protocol; Complete Time: 18:12 [facility] 02/12 17:52 Order name: O2 Sat Monitoring; Complete Time: 18:12 [facility] Administered Medications: 17:24 Drug: HYDROmorphone IM 1 mg Route: IM; Site: right deltoid; kc6 18:23 Follow up: Response: No adverse reaction; Pain is decreased; RASS: Alert and Calm (0) kc6 17:25 Drug: Ondansetron PO 4 mg Route: PO; kc6 18:23 Follow up: Response: No adverse reaction kc6 20:48 Drug: Rocephin IV 1 grams Route: IV; Rate: calculated rate; Site: left hand; ll3 20:48 Drug: Aspirin PO Chewable Tablet 324 mg Route: PO; ll3 21:14 Drug: morphine IVP or IV 4 mg Route: IVP; Infused Over: 4 mins; Site: left hand; ll3 21:14 Drug: Ondansetron IVP 4 mg Route: IVP; Site: left hand; ll3 Disposition Summary: 02/12/23 18:50 Hospitalization Ordered Hospitalization Status: Observation jm Provider: Simone Quiroga Location: Telemetry/MedSurg (observation) jm Condition: Stable jm Problem: new jmm Symptoms: have improved jm Bed/Room Type: Standard [facility] Room Assignment: 407(02/12/23 20:11) Diagnosis - Chest pain, unspecified [facility] Forms: - Medication Reconciliation Form jm - SBAR form [facility] Signatures: Dispatcher [employer] EDMS Carlos Hernandez PA PA jmm Garcia, Cindy, RN RN Elen Vidales RN RN Collette Hobbs RN RN ll3 Anayeli Mar RN RN kc6 Corrections: (The following items were deleted from the chart) 17:54 Urinalysis+U.LAB.BRZ ordered. EDMS EDMS 18:47 LACTATE+C.LAB.BRZ ordered. EDMS EDMS : 18:50 jmm cg
--- NOTE | 2023-02-12 18:51 | ER ---
Nurse's Notes [facility] Name: Kandice Dewey Age: 77 yrs Sex: Female : 1945 Arrival Date: 02/12/2023 Time: 16:58 Bed 14 Private MD: Diagnosis: Chest pain, unspecified Presentation: 02/12 17:05 Chief complaint: EMS states: Pt from [facility] sent for pain all over. hb Reports right sided breast cancer, scheduled [place] not providing pain relief today. Coronavirus screen: At this time, the client does not indicate any symptoms associated with coronavirus-19. Ebola Screen: No symptoms or risks identified at this time. Initial Sepsis Screen: Does the patient meet any 2 criteria? No. Patient's initial sepsis screen is negative. Does the patient have a suspected source of infection? No. Patient's initial sepsis screen is negative. Risk Assessment: Do you want to hurt yourself or someone else? Patient reports no desire to harm self or others. Onset of symptoms was February 12, 2023. 17:05 Method Of Arrival: EMS: [facility] hb 17:05 Acuity: MYESHA 3 hb Historical: - Allergies: 17:07 Codeine; hb 17:07 Latex, Natural Rubber; hb - PMHx: 17:07 diabetes mellitus; Hypercholesterolemia; Hypertensive disorder; hb - Immunization history:: Adult Immunizations up to date. - Social history:: Smoking status: Patient denies any tobacco usage or history of. Screenin:12 Abuse screen: Denies threats or abuse. Denies injuries from another. Nutritional kc6 screening: No deficits noted. Tuberculosis screening: No symptoms or risk factors identified. 21:08 [facility] ED Fall Risk Assessment (Adult) History of falling in the last 3 months, kl including since admission No falls in past 3 months (0 pts) Confusion or Disorientation No (0 pts) Intoxicated or Sedated No (0 pts) Impaired Gait Yes (1 pt) Mobility Assist Device Used Yes (1 pt) Altered Elimination No (0 pt) Score/Fall Risk Level 0 - 2 = Low Risk Oriented to surroundings, Maintained a safe environment. Assessment: 17:16 General: Appears in no apparent distress. comfortable, obese, Behavior is calm, kc6 cooperative, appropriate for age. Pain: Complains of pain in "all over". Neuro: Romero Agitation-Sedation Scale (RASS): 0 - Alert and Calm Level of Consciousness is awake, alert, obeys commands, Oriented to person, place, time, situation, Appropriate for age. Cardiovascular: Capillary refill < 3 seconds. Respiratory: Airway is patent Trachea midline Respiratory effort is even, unlabored, Respiratory pattern is regular, symmetrical. GI: No signs and/or symptoms were reported involving the gastrointestinal system. : No signs and/or symptoms were reported regarding the genitourinary system. EENT: No signs and/or symptoms were reported regarding the EENT system. Derm: No signs and/or symptoms reported regarding the dermatologic system. Skin is intact, is healthy with good turgor, Skin is pink, warm \\T\\ dry. Musculoskeletal: No signs and/or symptoms reported regarding the musculoskeletal system. Circulation, motion, and sensation intact. Capillary refill < 3 seconds, Range of motion: intact in all extremities. 17:53 Reassessment: Ruddy Stevenson (nephew \\T\\ MPOA) [phone]. [facility] 18:16 Reassessment: Patient appears in no apparent distress at this time. No changes from 6 previously documented assessment. Patient and/or family updated on plan of care and expected duration. Pain level reassessed. Patient is alert, oriented x 3, equal unlabored respirations, skin warm/dry/pink. 19:00 Reassessment: Patient appears in no apparent distress at this time. No changes from 6 previously documented assessment. Patient and/or family updated on plan of care and expected duration. Pain level reassessed. Patient is alert, oriented x 3, equal unlabored respirations, skin warm/dry/pink. Vital Signs: 17:05 BP 124 / 89; Pulse 90; Resp 16; Temp 98.1(O); Pulse Ox 99% on R/A; Weight 108.86 kg; hb Height 5 ft. 3 in. ; Pain 8/10; 18:24 BP 132 / 77; Pulse 70; Resp 22 S; Pulse Ox 100% on R/A; kc6 17:05 Body Mass Index 42.51 (108.86 kg, 160.02 cm) hb 17:05 Pain Scale: Adult hb ED Course: 17:02 Patient arrived in ED. ds4 17:06 Anayeli Mar, DAVIN is Primary Nurse. kc6 17:07 Triage completed. hb 17:07 Arm band placed on. 17:08 Carlos Hernandez PA is PHCP. [facility] 17:08 Chuy Pena MD is Attending Physician. m 17:13 Patient has correct armband on for positive identification. Bed in low position. Call kc6 light in reach. Side rails up X2. 18:34 XRAY Chest (1 view) In Process Unspecified. EDMS 18:50 Simone Quiroga is Hospitalizing Provider. [facility] 21:08 No provider procedures requiring assistance completed. Patient admitted, IV remains in kl place. Administered Medications: 17:24 Drug: HYDROmorphone IM 1 mg Route: IM; Site: right deltoid; kc6 18:23 Follow up: Response: No adverse reaction; Pain is decreased; RASS: Alert and Calm (0) [facility] 17:25 Drug: Ondansetron PO 4 mg Route: PO; kc6 18:23 Follow up: Response: No adverse reaction [facility] 20:48 Drug: Rocephin IV 1 grams Route: IV; Rate: calculated rate; Site: left hand; ll3 20:48 Drug: Aspirin PO Chewable Tablet 324 mg Route: PO; ll3 21:14 Drug: morphine IVP or IV 4 mg Route: IVP; Infused Over: 4 mins; Site: left hand; ll3 21:14 Drug: Ondansetron IVP 4 mg Route: IVP; Site: left hand; ll3 Medication: 21:08 VIS not applicable for this client. Outcome: 18:50 Decision to Hospitalize by Provider. [facility] 21:07 Admitted to Med/surg via stretcher, room 407, Report called to GRISEL stanley 21:07 Condition: improved 21:07 Discharge instructions given to patient, family, Instructed on the need for admit, Demonstrated understanding of instructions. 21:17 Patient left the ED. rv1 Signatures: Dispatcher [employer] EDMS Marian Martínez RN RN kl Mickail, Joel, PA PA [facility] William Lees ds4 Elen Vidales RN RN Collette Hobbs RN RN ll3 Anayeli Mar RN RN kc6 Brittany Mccormick rv1
[2023-02-12] MEDS ORDERED: ACETAMINOPHEN 500 MG TAB PO PRN (19:11)
[2023-02-12] MEDS ORDERED: ASPIRIN 81 MG CHEWABLE TABLET ONE (20:45)
[2023-02-12] MEDS ORDERED: CEFTRIAXONE 1000 MG/VIAL ONE (20:45)
[2023-02-12] MEDS ORDERED: NA CHLORIDE 0.9% 50 ML ONE (20:45)
[2023-02-12] MEDS ORDERED: MORPHINE 4 MG/ML SYR ONE (21:16)
[2023-02-12] MEDS ORDERED: ONDANSETRON 4 MG/2 ML VIAL ONE (21:16)
[2023-02-12] MEDS ORDERED: ONDANSETRON 4 MG/2 ML VIAL IV PRN (21:52)
[2023-02-12] MEDS: NA CHLORIDE 0.9% 1,000 ML IV SCH (22:20)
[2023-02-12 22:22] LABS: Protime INR ND
[2023-02-12] MEDS: ATORVASTATIN 40 MG TAB PO SCH (22:23)
[2023-02-12] MEDS ORDERED: QUETIAPINE 25 MG TAB PO PRN ×2 (22:30→22:34)
[2023-02-12] MEDS: GABAPENTIN 100 MG CAP PO SCH (22:41)
[2023-02-12] MEDS ORDERED: INSULIN -REGULAR HUMAN 50 UNIT/0.5 ML ML ONE (23:21)
[2023-02-13] MEDS ORDERED: HYDROCODONE/APAP 5/325 MG TAB PO PRN (03:36)
[2023-02-13 05:09] LABS: Specific Gravity 1.016 (1.005-1.030); Urine Bacteria <20 /HPF (<20); Urine Bilirubin NEGATIVE (Negative); Urine Blood 1+ (Negative); Urine Clarity Extremely Turbid (Clear); Urine Color Yellow (Yellow); Urine Glucose 3+ (Negative); Urine Protein TRACE (Negative); Urine Urobilinogen Normal (Normal); Urine Yeast with Hyphae Trace /HPF (None Seen)
[2023-02-13] MEDS: ASPIRIN 325 MG TAB PO SCH (07:03)
[2023-02-13] MEDS: ENOXAPARIN 40 MG/0.4 ML SQ SCH (07:03)
[2023-02-13] MEDS: GABAPENTIN 100 MG CAP PO SCH ×2 (07:03→14:00)
--- NOTE | 2023-02-13 09:22 | RAD REPORT ---
EXAM DESCRIPTION: CT - Chest For Pe Angio - 02/13/2023 8:52 am CLINICAL HISTORY: Chest pain COMPARISON: CTANGIO CHEST FOR PE dated 03/18/2013; Brain W/Wo Cont dated 01/16/2023; Head Brain Wo Con t dated 01/14/2023; Head C Spine Cap Wo Con dated 12/31/2022 TECHNIQUE: Thin axial CT images of the chest were obtained following administration of 95 mL Isovue 370 IV contrast. Multiplanar reconstructions, and maximum intensity projection reconstructions were g enerated and reviewed. Exam utilizes a protocol for optimal evaluation of pulmonary arterial tree. All CT scans are performed using dose optimization technique as appropriate and may include automated exposure control or mA/KV adjustment according to patient size. FINDINGS: Pulmonary arteries are normal. No emboli or other suspicious finding. No acute or signific ant aorta findings. No mass or infiltrate in the lung parenchyma. Dependent atelectatic changes bilaterally No pleural th ickening or pleural effusion. No pneumothorax. Stable masslike soft tissue thickening in the lateral aspect of the right breast. There is somewhat m ore pronounced overlying skin ulceration. Underlying soft tissue nodules, the largest measuring 1.3 c entimeter are stable to slightly progressive since the prior exam. No abnormal mediastinal or hilar masses or lymphadenopathy seen. No chest wall mass or abnormal axill iary lymphadenopathy. IMPRESSION: No evidence of acute central pulmonary emboli. Stable to slightly progressive size of soft tissue nodules in the right breast, largest measuring 1.3 centimeter today, underlying underlying an ulcerated hypo dermal mass.
[2023-02-13 10:10] LABS: Absolute Lymphocytes (CBC) 1.9 K/uL (0.7-4.9); Hematocrit 39.7 % (36.0-45.0); Lymphocytes % 33.2 % (15.3-44.8); MCV 84.8 fL (80-100); MPV 9.1 fL (7.6-11.3); RBC Red Blood Cell Count 4.68 M/uL (3.86-4.86)
[2023-02-13 10:20] LABS: Magnesium 1.6 mg/dL (1.6-2.4); Phosphorus 2.3 mg/dL (2.5-4.9); Potassium 3.9 mEq/L (3.5-5.1)
[2023-02-13] MEDS ORDERED: MAGNESIUM SULFATE 1 gm IVPB 1 GM/100 ML BAG IV ONE (10:23)
[2023-02-13] MEDS ORDERED: POTASSIUM PHOS IN 0.9 % NACL 15 MMOL/250 ML BAG IV ONE (10:37)
[2023-02-13] MEDS ORDERED: KCL 20 MEQ/100 mL IVPB 20 MEQ/100 ML BAG IV SCH (11:00)
[2023-02-13] MEDS: NA CHLORIDE 0.9% 1,000 ML IV SCH (11:31)
--- NOTE | 2023-02-13 15:45 | EKG ---
Test Date: 2023-02-12 Test Time: 18:19:18 Medical Affairs Manager: HAYDEN MEASUREMENT RESULTS: Intervals: Rate: 84 TN: 198 QRSD: 84 QT: 380 QTc: 449 [place]: P: 18 TN: 198 QRS: 53 T: -6 INTERPRETIVE STATEMENTS: Sinus rhythm with marked sinus arrhythmia with fusion complexes Possible Inferior infarct, age undetermined Abnormal ECG Compared to ECG 12/31/2022 11:56:52 Fusion complex(es) now present Myocardial infarct finding now present Sinus tachycardia no longer present Atrial premature complex(es) no longer present Electronically Signed On 02-13-23 15:44:06 CDT by Nicholas De Oliveira
--- NOTE | 2023-02-13 16:08 | P.PN ---
Subjective Date of Service: 02/13/23 Chief Complaint: Generalized pain Patient is not speaking much. She is nods or shakes her head to questions. She has been in rehab since her cancer diagnosis. I met with the family who requesting no plan of care has been established for her breast cancer. Patient was transferred from the care home to the emergency department due to uncontrolled generalized bodily pains per family. Family denied any specific chest pain complaint. Physical Examination - Vital Signs Temperature: 97 F Blood Pressure: 136/58 Pulse: 94 Respirations: 12 Pulse Ox (%): 99 - Physical Exam General: In no apparent distress, Other (Awake) HEENT: Mucous membr. moist/pink Neck: Supple, JVD not distended Respiratory: Clear to auscultation bilaterally, Normal air movement Cardiovascular: No edema, Regular rate/rhythm, Normal S1 S2 Gastrointestinal: Soft and benign, Non-distended, No tenderness Musculoskeletal: No swelling Integumentary: Other (4 cm ulcer with clean base right breast, sacral decubitus ulcer) Neurological: Other (Globally weak) - Studies Laboratory Data (last 24 hrs) 02/12/23 18:09: PT ND, INR ND 02/12/23 18:09: WBC 6.90, Hgb 13.7, Hct 43.6, Plt Count 211 02/12/23 18:09: Sodium 132 L, Potassium 4.1, BUN 18, Creatinine 0.52 L, Glucose 288 H, Magnesium 1.7, Total Bilirubin 0.5, AST 16, ALT 21, Alkaline Phosphatase 92 Assessment And Plan - Current Problems (Diagnosis) (1) Breast cancer, right Current Visit: Yes Status: Acute (2) Debility Current Visit: Yes Status: Acute (3) Cancer related pain Current Visit: Yes Status: Acute (4) Depression Current Visit: Yes Status: Acute (5) Abscess of right breast Current Visit: Yes Status: Acute (6) Acute cystitis without hematuria Current Visit: Yes Status: Acute - Plan I suspect patient Global weakness and pain likely related to the breast cancer. Reviewed old records and noted no brain metastasis. Pelvis CT, abdominal CT, chest CT and spines CTs shows no distant metastasis. Patient report poor performance status, ECOG stage IV. Family mentioned cancer therapy has been held until patient performance status improved. She was undergoing rehab but no significant response. Trial of Remeron for depression. General surgery Dr. Rowe consulted to evaluate right breast abscess and to also discuss surgical plans for the breast cancer. Pain management as needed. Continue PT Antibiotics for UTI. Follow urine culture.
[2023-02-13] MEDS ORDERED: SIMETHICONE 80 MG TAB PO PRN (16:24)
[2023-02-13] MEDS: POLYETHYL GLY 3350 17 GM/DOSE PO SCH (16:59)
[2023-02-13] MEDS: INSULIN GLARGINE 100 UNIT/ML SQ SCH (16:59)
[2023-02-13] MEDS: CEFTRIAXONE 1,000 MG in NA CHLORIDE 0.9% 50 ML IVPB SCH (17:23)
[2023-02-13] MEDS: HYDROCODONE/APAP 7.5/325 MG TAB PO PRN (17:23)
[2023-02-13] MEDS: ATORVASTATIN 40 MG TAB PO SCH (20:17)
[2023-02-13] MEDS: BUSPIRONE HCL 5 MG TABLET PO SCH (20:17)
[2023-02-13] MEDS: GABAPENTIN 300 MG CAP PO SCH (20:17)
[2023-02-13] MEDS: ASCORBIC ACID 500 MG TABLET PO SCH (20:17)
[2023-02-13] MEDS: MIRTAZAPINE 15 MG TAB PO SCH (20:17)
[2023-02-13] MEDS: ATORVASTATIN 10 MG TAB PO SCH (20:18)
[2023-02-13] MEDS: INSULIN -REGULAR HUMAN 50 UNIT/0.5 ML ML SQ SCH (20:57)
[2023-02-13] MEDS ORDERED: HOME MED 1 EA UNK (Simvastatin [Zocor*] 20 MG Tablet) PO SCH (21:00)
[2023-02-13] MEDS ORDERED: HOME MED 1 EA UNK (Ascorbic Acid [Vitamin C] 500 MG Tab.Chew) PO SCH (21:00)
--- NOTE | 2023-02-13 21:07 | CON ---
Date of Consultation: 02/13/2023 Reason For Consultation: Chest pain. History Of Present Illness: A 77-year-old female, very poor historian, has dyslipidemia, diabetes, m orbid obesity, presented to the emergency room with complaint of generalized pain all over her body a nd she apparently also was complaining of chest pain. She is very poor historian, could not give me any history, but as per the chart, the pain is substernal, no radiation, no shortness of breath and n ot related to activities. Past Medical History: As outlined above in HPI. Medications: Refer consult sheet for detailed list. Allergies: CODEINE. Social History: She does not smoke or drink. Does not use any drugs. Family History: No premature coronary artery disease or cancer. Review of Systems: All systems reviewed were negative except as mentioned in HPI. Physical Examination: Vital Signs: Reviewed. Head and Neck: Pupils are equal, reactive to light. Intact eye movements. No JVD. No cervical lym phadenopathy. Neck is supple. Thyroid is not enlarged. Lungs: Clear to auscultation bilaterally. No rhonchi, wheezing, or crackles. No accessory muscle u se. Heart: Regular rate and rhythm. No extra sounds. Abdomen: Soft, nontender. Bowel sounds positive. No organomegaly. No masses or hernia. No rigidi ty or rebound. Extremities: No edema, clubbing, or cyanosis. Intact pulses. Skin: No rash. Neurologic: Alert, awake, but appears to be confused. No focal deficits appreciated. Investigations: Troponins x4 negative. BUN 16, creatinine 0.43. Hemoglobin is 12.5. Assessment And Plan: 1.Chest pain. Patient has generalized body aches and pain, but among that she also has a chest pain . Cardiac enzymes are negative. Patient is very poor historian. Not able to get a very good histor y. Hence, I recommend a Lexiscan nuclear stress test to further evaluate as I am not able to get an accurate clinical information from her. 2.Hypertension. Blood pressure is controlled. Continue current therapy. 3.Dyslipidemia, on statin. SR/MODL Voice ID: [id number] Report ID: [id number]
[2023-02-13] MEDS ORDERED: INSULIN -REGULAR HUMAN 50 UNIT/0.5 ML ML SQ SCH (22:58)
[2023-02-14 00:49] VITALS: BMI 41.6
[2023-02-14 04:48] LABS: Absolute Lymphocytes (CBC) 1.9 K/uL (0.7-4.9); Hematocrit 37.9 % (36.0-45.0); Lymphocytes % 34.7 % (15.3-44.8); MCV 85.7 fL (80-100); MPV 8.4 fL (7.6-11.3); RBC Red Blood Cell Count 4.42 M/uL (3.86-4.86)
[2023-02-14 04:58] LABS: Magnesium 1.7 mg/dL (1.6-2.4); Potassium 4.3 mEq/L (3.5-5.1)
[2023-02-14] MEDS ORDERED: MAGNESIUM SULFATE 1 gm IVPB 1 GM/100 ML BAG IV ONE (06:00)
[2023-02-14] MEDS: INSULIN -REGULAR HUMAN 50 UNIT/0.5 ML ML SQ SCH ×4 (07:30→21:00)
[2023-02-14] MEDS: ASPIRIN 325 MG TAB PO SCH (08:13)
[2023-02-14] MEDS: BUSPIRONE HCL 5 MG TABLET PO SCH ×2 (08:13→21:00)
[2023-02-14] MEDS: ENOXAPARIN 40 MG/0.4 ML SQ SCH (08:14)
[2023-02-14] MEDS: INSULIN GLARGINE 100 UNIT/ML SQ SCH (08:14)
[2023-02-14] MEDS: ASCORBIC ACID 500 MG TABLET PO SCH ×2 (08:15→21:00)
[2023-02-14] MEDS: ZINC SULFATE 220 MG CAP PO SCH (08:15)
[2023-02-14] MEDS ORDERED: HOME MED 1 EA UNK (Insulin Degludec [Tresiba Flextouch U-200] 200 UNIT/ML Insuln.Pen) SQ SCH (09:00)
[2023-02-14] MEDS ORDERED: POTASSIUM PHOS IN 0.9 % NACL 15 MMOL/250 ML BAG IV ONE (09:00)
[2023-02-14] MEDS: CEFTRIAXONE 1,000 MG in NA CHLORIDE 0.9% 50 ML IVPB SCH (09:12)
[2023-02-14] MEDS ORDERED: REGADENOSON 0.4 MG/5 ML SYR IV ONE (09:57)
--- NOTE | 2023-02-14 16:18 | P.CNS ---
Date of Consult: 02/14/23 PC: I was asked to see again this patient in regards to treatment for her right breast. HPC: The patient previously had been in the hospital for a fall, fractured humerus, it was found at the time she had an abscess on the left side of her back and also a mass in her right breast. A biopsy had been taken of the area in her right breast which showed cancer. The patient was to be transferred to a skilled nursing for rehab, and then brought back for possible elective treatment after her biopsy had come back, and we could then intervene for her breast cancer. PSHx: Right breast biopsy Social Hx: Allergic to codeine, citrus, and latex Sys R: This patient is deteriorating considerably since he was last seen at this facility. She virtually is somnolent when we are in the room with her. We were able to do a physical examination with minimal response from the patient. O/E: Sleeping, vital signs are stable, appears to be obtunded and does not wake up or answer questions. Chest: Air entry equal bilaterally, on examination of the chest there of the right breast does show an open area where we had done the biopsy. The wound base itself is clean, there is minimal drainage coming from it. The surrounding skin edges are erythematous. There is no odor from the wound, or no active drainage or bleeding. A dressing is placed over the area, and is intact. Abd: Negative [place]: Negative Data: Patient biopsy came back positive for carcinoma, CT scans do not show any evidence of any metastatic disease Impression: Cancer in the right breast, with mental changes. Plan: This patient, has an area in her right breast of carcinoma. While the optimal treatment would be to do a right modified radical mastectomy with a lym ph node dissection, this patient is obtunded. I do not feel that she would be a good candidate for anesthesia, while the surgery could be done with local anesthesia, the area is stable at the moment. Her pain appears to be controlled. Clinically her appearance does not make it possible for us to offer her surgical options at this point. Obviously if she mentally improves, her nutritional status improves, then we could reconsider her options.
--- NOTE | 2023-02-14 16:58 | P.PN ---
Subjective Date of Service: 02/14/23 Chief Complaint: Generalized pain Patient appeared to be lethargic today. No issues overnight. No agitation reported No recorded fever. Physical Examination - Vital Signs Temperature: 96.9 F Blood Pressure: 119/57 Pulse: 85 Respirations: 16 Pulse Ox (%): 98 - Physical Exam General: Other (Lethargic) HEENT: Mucous membr. moist/pink Neck: JVD not distended Respiratory: Clear to auscultation bilaterally, Normal air movement Cardiovascular: Regular rate/rhythm, Normal S1 S2 Gastrointestinal: Soft and benign, Non-distended Integumentary: Other (Right breast nonhealing ulcer) Neurological: Other (Globally weak) - Studies Laboratory Data (last 24 hrs) 02/14/23 04:27: WBC 5.40, Hgb 12.1, Hct 37.9, Plt Count 173 02/14/23 04:27: Sodium 136, Potassium 4.3, BUN 9, Creatinine 0.38 L, Glucose 157 H, Phosphorus 2.0 L, Magnesium 1.7 Microbiology Data (last 24 hrs): 02/12/23 20:05 Blood - Blood Anaerobic Blood Culture - Final 02/12/23 19:57 Blood - Blood Anaerobic Blood Culture - Final Assessment And Plan - Current Problems (Diagnosis) (1) Breast cancer, right Current Visit: Yes Status: Acute (2) Debility Current Visit: Yes Status: Acute (3) Cancer related pain Current Visit: Yes Status: Acute (4) Depression Current Visit: Yes Status: Acute (5) Abscess of right breast Current Visit: Yes Status: Acute (6) Acute cystitis without hematuria Current Visit: Yes Status: Acute - Plan I suspect patient Global weakness and pain likely related to the breast cancer. Reviewed old records and noted no brain metastasis. Pelvis CT, abdominal CT, chest CT and spines CTs shows no distant metastasis. Poor performance status-ECOG stage IV. Family mentioned cancer therapy has been held until patient performance status improved. She was undergoing rehab but no significant response. Trial of Remeron for depression. General surgery Dr. Rowe consulted to evaluate right breast abscess and to also discuss surgical plans for the breast cancer. Case also discussed with oncology Dr. Moreno. Patient cosidered not a good candidate for any consult treatment according to Dr. Moreno. Dr. Moreno recommend hospice. Patient seen and evaluated by surgery Dr. Rowe who considers patient not candidate for surgery. Overall recommending hospice. Pain management as needed. Continue PT Continue IV Rocephin for UTI. Follow urine culture.
[2023-02-14] MEDS: ATORVASTATIN 40 MG TAB PO SCH (21:00)
[2023-02-14] MEDS ORDERED: QUETIAPINE 25 MG TAB PO SCH (21:00)
[2023-02-14] MEDS: HYDROCODONE/APAP 7.5/325 MG TAB PO PRN (21:48)
[2023-02-14] MEDS: ATORVASTATIN 10 MG TAB PO SCH (21:49)
[2023-02-14] MEDS: GABAPENTIN 300 MG CAP PO SCH (21:49)
[2023-02-14] MEDS: MIRTAZAPINE 15 MG TAB PO SCH (21:49)
[2023-02-14] MEDS: D5 0.9 NS 1,000 ML IV SCH (21:56)
[2023-02-15] MEDS: MORPHINE 2 MG/ML SYR IV ONE ×2 (00:37→00:43)
[2023-02-15] MEDS: INSULIN -REGULAR HUMAN 50 UNIT/0.5 ML ML SQ SCH ×4 (07:30→22:46)
[2023-02-15] MEDS: D5 0.9 NS 1,000 ML IV SCH ×2 (08:20→18:20)
[2023-02-15] MEDS: ASPIRIN 325 MG TAB PO SCH (08:53)
[2023-02-15] MEDS: INSULIN GLARGINE 100 UNIT/ML SQ SCH (08:54)
[2023-02-15] MEDS: BUSPIRONE HCL 5 MG TABLET PO SCH ×2 (08:54→22:45)
[2023-02-15] MEDS: ASCORBIC ACID 500 MG TABLET PO SCH ×2 (08:54→22:45)
[2023-02-15] MEDS: ZINC SULFATE 220 MG CAP PO SCH (08:54)
[2023-02-15] MEDS: ENOXAPARIN 40 MG/0.4 ML SQ SCH (09:04)
[2023-02-15] MEDS: CEFTRIAXONE 1,000 MG in NA CHLORIDE 0.9% 50 ML IVPB SCH (09:04)
[2023-02-15] MEDS: HYDROCODONE/APAP 7.5/325 MG TAB PO PRN ×3 (12:59→23:18)
--- NOTE | 2023-02-15 13:52 | P.PN ---
Subjective Date of Service: 02/15/23 Chief Complaint: Generalized pain Patient's clinical condition is declining. She is obtunded. No recorded fever. Physical Examination - Vital Signs Temperature: 98.3 F Blood Pressure: 152/65 Pulse: 92 Respirations: 18 Pulse Ox (%): 97 - Studies Microbiology Data (last 24 hrs): 02/13/23 01:22 Other - Breast Gram Stain - Final 02/13/23 01:22 Other - Breast Culture & Sensitivity - Final 02/13/23 01:22 Clean Catch Urine [place] Count - Final <10,000 CFU/ML. 02/13/23 01:22 Clean Catch Urine - Final MIXED LINDA. Assessment And Plan - Current Problems (Diagnosis) (1) Breast cancer, right Current Visit: Yes Status: Acute (2) Debility Current Visit: Yes Status: Acute (3) Cancer related pain Current Visit: Yes Status: Acute (4) Depression Current Visit: Yes Status: Acute (5) Abscess of right breast Current Visit: Yes Status: Acute (6) Acute cystitis without hematuria Current Visit: Yes Status: Acute - Plan Physical Exam General: Obtunded. NAD. HEENT: Mucous membr. moist/pink Neck: JVD not distended Respiratory: Clear to auscultation bilaterally, Normal air movement Cardiovascular: Regular rate/rhythm, Normal S1 S2 Gastrointestinal: Soft and benign, Non-distended Integumentary: Right breast nonhealing ulcer Neurological: Globally weak. Plan Global weakness and pain related to the breast cancer. No focus of infection identified. Urine culture showed mixed growth. Reviewed old records and noted no brain metastasis. Pelvis CT, abdominal CT, chest CT and spines CTs shows no distant metastasis. Poor performance status-ECOG stage IV. Family mentioned cancer therapy has been held until patient performance status improved. She was undergoing rehab but no significant response. Case also discussed with oncology Dr. Moreno. Patient considered not a good candidate for any cancer treatment according to Dr. Moreno. Dr. Moreno recommend hospice. Patient also seen and evaluated by surgery Dr. Rowe who considers patient not candidate for surgery and recommended hospice. Hospice care discussed with family and they are receptive. Social service consulted to assist with arrangement for hospice Pain management as needed. Continue IV Rocephin for now Discontinue all psychotropic medications.. D5 NS IV fluid maintenance. Physician Review: Patient Assessed, Agree with Above Assessment and Plan
[2023-02-15] MEDS: HYDROMORPHONE HCL 0.5 MG/0.5 ML INJ IV PRN (22:43)
[2023-02-15] MEDS: ATORVASTATIN 10 MG TAB PO SCH (22:45)
[2023-02-15] MEDS: ATORVASTATIN 40 MG TAB PO SCH (22:46)
[2023-02-15] MEDS ORDERED: INSULIN -REGULAR HUMAN 50 UNIT/0.5 ML ML ONE (22:46)
[2023-02-16] MEDS: HYDROMORPHONE HCL 0.5 MG/0.5 ML INJ IV PRN ×2 (02:40→15:00)
[2023-02-16] MEDS: HYDROCODONE/APAP 7.5/325 MG TAB PO PRN ×3 (03:46→21:55)
[2023-02-16] MEDS: INSULIN -REGULAR HUMAN 50 UNIT/0.5 ML ML SQ SCH ×5 (07:30→20:50)
[2023-02-16 07:55] LABS: Absolute Lymphocytes (CBC) 2.1 K/uL (0.7-4.9); Hematocrit 39.8 % (36.0-45.0); MCV 85.4 fL (80-100); MPV 8.7 fL (7.6-11.3); RBC Red Blood Cell Count 4.67 M/uL (3.86-4.86)
[2023-02-16 08:07] LABS: Magnesium 1.5 mg/dL (1.6-2.4); Potassium 3.9 mEq/L (3.5-5.1)
[2023-02-16] MEDS: CEFTRIAXONE 1,000 MG in NA CHLORIDE 0.9% 50 ML IVPB SCH (09:04)
[2023-02-16] MEDS: INSULIN GLARGINE 100 UNIT/ML SQ SCH (09:05)
[2023-02-16] MEDS: ENOXAPARIN 40 MG/0.4 ML SQ SCH (09:06)
[2023-02-16] MEDS: BUSPIRONE HCL 5 MG TABLET PO SCH ×2 (09:06→20:42)
[2023-02-16] MEDS: ASPIRIN 325 MG TAB PO SCH (09:06)
[2023-02-16] MEDS: ASCORBIC ACID 500 MG TABLET PO SCH ×2 (09:06→20:42)
[2023-02-16] MEDS: ZINC SULFATE 220 MG CAP PO SCH (09:06)
[2023-02-16] MEDS: POLYETHYL GLY 3350 17 GM/DOSE PO SCH (09:11)
[2023-02-16 10:00] LABS: Blood Morphology Comment NOT SEEN (NOT SEEN); Platelet Estimate ADEQ; White Blood Cell Scan OK (OK)
[2023-02-16] MEDS: D5 0.9 NS 1,000 ML IV SCH ×2 (10:52→15:00)
--- NOTE | 2023-02-16 13:15 | P.PN ---
Subjective Date of Service: 02/16/23 Chief Complaint: Generalized pain Patient is more awake and interactive today after stopping some of his pain medications. No recorded fever. She was awake enough to eat a little bit this morning. Physical Examination - Vital Signs Temperature: 96.9 F Blood Pressure: 163/69 Pulse: 81 Respirations: 18 Pulse Ox (%): 99 - Studies Microbiology Data (last 24 hrs): 02/13/23 01:22 Wound - Flank Gram Stain - Final 02/13/23 01:22 Wound - Flank Culture & Sensitivity - Final Assessment And Plan - Current Problems (Diagnosis) (1) Breast cancer, right Current Visit: Yes Status: Acute (2) Debility Current Visit: Yes Status: Acute (3) Cancer related pain Current Visit: Yes Status: Acute (4) Depression Current Visit: Yes Status: Acute (5) Abscess of right breast Current Visit: Yes Status: Acute (6) Acute cystitis without hematuria Current Visit: Yes Status: Acute - Plan Physical Exam General: Awake today. NAD. HEENT: Mucous membr. moist/pink Neck: JVD not distended Respiratory: Clear to auscultation bilaterally, Normal air movement Cardiovascular: Regular rate/rhythm, Normal S1 S2 Gastrointestinal: Soft and benign, Non-distended Integumentary: Right breast nonhealing ulcer Neurological: Globally weak. Plan Global weakness and pain related to the breast cancer. No focus of infection identified. Urine culture showed mixed growth. Reviewed old records and noted no brain metastasis. Pelvis CT, abdominal CT, chest CT and spines CTs shows no distant metastasis. Poor performance status-ECOG stage IV. Family mentioned cancer therapy has been held until patient performance status improved. She was undergoing rehab but no significant response. Case discussed with oncology Dr. Moreno. Patient considered not a good candidate for any cancer treatment according to Dr. Moreno. Dr. Moreno recommend hospice. Patient also seen and evaluated by surgery Dr. Rowe who considers patient not candidate for surgery and recommended hospice. Hospice care discussed with family and they are receptive. Social service consulted to assist with arrangement for hospice Pain management as needed. Continue IV Rocephin. Patient to complete 5 days of treatment. Continue to hold psychotropic medications. Short acting pain medications as needed. D5 NS IV fluid maintenance. Insulin sliding scale for glucose management. Lovenox for DVT prophylaxis.
[2023-02-16] MEDS: ATORVASTATIN 40 MG TAB PO SCH (20:42)
[2023-02-16] MEDS: ATORVASTATIN 10 MG TAB PO SCH (20:42)
[2023-02-16 20:55] VITALS: TEMP 97.2
[2023-02-17] MEDS: HYDROCODONE/APAP 7.5/325 MG TAB PO PRN (01:55)
[2023-02-17 13:38] VITALS: O2SAT 98
[2023-02-17 13:58] VITALS: BP 145/78
--- NOTE | 2023-02-17 15:17 | P.DS ---
Admission Date: 02/14/23 Discharge Date: 02/17/23 Disposition: TRANSFER TO HALF-WAY Discharge Condition: FAIR Reason for Admission: Generalized pain - Problems (1) Breast cancer, right Current Visit: Yes Status: Acute (2) Debility Current Visit: Yes Status: Acute (3) Cancer related pain Current Visit: Yes Status: Acute (4) Depression Current Visit: Yes Status: Acute (5) Abscess of right breast Current Visit: Yes Status: Acute (6) Acute cystitis without hematuria Current Visit: Yes Status: Acute Brief History of Present Illness: 77 yrs old Female with a past medical history significant for DM 2, hyp erlipidemia, morbid obesity, hypertension, breast cancer presents to ER via EMS with complaints of Pain. She reports chest pain that is located primarily in the substernal, that does not radiate. She denied shortness of breath, fever, cough, NVD, abdominal pain, dysuria. Reported generalized weakness. Patient was hospitalized for further management. Hospital Course: Global weakness and pain related to the breast cancer. No focus of infection identified. Urine culture showed mixed growth. Reviewed old records and noted no brain metastasis. Pelvis CT, abdominal CT, chest CT and spines CTs showed no distant metastasis. Poor performance status-ECOG stage IV. She was undergoing rehab to improve her performance status before initiation of cancer therapy but she had no significant response and being persistently bedridden and lethargic. Case discussed with oncology Dr. Moreno. Patient considered not a good candidate for any cancer treatment according to Dr. Moreno. Dr. Moreno recommended hospice. Patient also seen and evaluated by surgery Dr. Rowe who considered patient not candidate for surgery and recommended hospice. Hospice care discussed with family. Social service consulted to assist with arrangement for hospice Pain management as needed. Patient was treated with empiric IV Rocephin. She became more responsive after holding psychotropic medications including gabapentin. She has been accepted to hospice in a correction. Vital Signs/Physical Exam: Temp Pulse Resp BP Pulse Ox 97.2 F 101 H 16 145/78 H 98 02/17/23 12:00 02/17/23 12:00 02/17/23 08:00 02/17/23 08:00 02/17/23 12:00 General: Oriented x1 Neck: JVD not distended Respiratory: Clear to auscultation bilaterally, Normal air movement Cardiovascular: Normal S1 S2, Other (Tachycardia) Gastrointestinal: Soft and benign, Non-distended Integumentary: No cyanosis Neurological: Other (Globally weak) Laboratory Data at Discharge: WBC 5.60 thou/uL (4.3-10.9) 02/16/23 07:25 Hgb 12.6 g/dL (12.0-15.0) 02/16/23 07:25 Hct 39.8 % (36.0-45.0) 02/16/23 07:25 Plt Count 167 thou/uL (152-406) 02/16/23 07:25 PT ND 02/12/23 18:09 INR ND 02/12/23 18:09 Sodium 135 mEq/L (136-145) L 02/16/23 07:25 Potassium 3.9 mEq/L (3.5-5.1) 02/16/23 07:25 BUN 7 mg/dL (7-18) 02/16/23 07:25 Creatinine 0.43 mg/dL (0.55-1.02) L 02/16/23 07:25 Glucose 301 mg/dL (74-106) H 02/16/23 07:25 Phosphorus 2.0 mg/dL (2.5-4.9) L 02/14/23 04:27 Magnesium 1.5 mg/dL (1.6-2.4) L 02/16/23 07:25 Total Bilirubin 0.5 mg/dL (0.2-1.0) 02/12/23 18:09 AST 16 U/L (15-37) 02/12/23 18:09 ALT 21 U/L (13-56) 02/12/23 18:09 Alkaline Phosphatase 92 U/L (45-117) 02/12/23 18:09 Home Medications: Acetaminophen [Tylenol] 650 mg PO Q8HR PRN 02/12/23 Apixaban [Eliquis] 5 mg PO BID 02/12/23 Ascorbic Acid [Vitamin C] 500 mg PO BID 02/12/23 Buspirone HCl [Buspar*] 5 mg PO BID 02/12/23 Insulin Lispro See Protocol SQ ACHS 02/12/23 Metoprolol Tartrate [Lopressor*] 50 mg PO BID 6AM 6PM 02/12/23 Polyethylene Glycol 3350 [Miralax] 17 g PO EVERY 3RD DAY 02/12/23 Simethicone 80 mg PO Q8HR PRN 02/12/23 Zinc Sulfate [Zinc Sulfate*] 220 mg PO DAILY 02/12/23 Hydrocodone 7.5/APAP 325 [Mclean 7.5/325 mg*] 1 tab PO Q6H PRN #12 tab 02/17/23 New Medications: Hydrocodone 7.5/APAP 325 [Mclean 7.5/325 mg*] 1 tab PO Q6H PRN #12 tab PRN Reason: Pain Scale 5-7 (Moderate) Diet: Regular Activity: Fall precautions Followup: NONE,NONE [Primary Care Provider] - Time spent managing pt's care (in minutes): 38
== END 2023-02-17 15:55 | disposition hospice, inpatient (51) | DRG 598 ==
LOC: ER 16:58 → ERHOLD 19:04 → 4TH 20:24 → OBSVTOIN 02-14 13:00
PROVIDERS: ADMIT Internal Medicine; ATTEND Internal Medicine
DX: C50.911 Malignant neoplasm of unspecified site of right female breast (principal); E87.1 Hypo-osmolality and hyponatremia; Z68.41 Body mass index [BMI] 40.0-44.9, adult; N30.00 Acute cystitis without hematuria; G89.3 Neoplasm related pain (acute) (chronic); E66.01 Morbid (severe) obesity due to excess calories; I12.9 Hypertensive chronic kidney disease with stage 1 through stage 4 chronic kidney disease, or unspecified chronic kidney disease; N18.2 Chronic kidney disease, stage 2 (mild); E11.22 Type 2 diabetes mellitus with diabetic chronic kidney disease; E11.65 Type 2 diabetes mellitus with hyperglycemia; N32.81 Overactive bladder; F32.A Depression, unspecified; E78.00 Pure hypercholesterolemia, unspecified; Z88.5 Allergy status to narcotic agent; Z79.4 Long term (current) use of insulin; Z51.5 Encounter for palliative care; Z79.52 Long term (current) use of systemic steroids; Z79.01 Long term (current) use of anticoagulants; Z90.49 Acquired absence of other specified parts of digestive tract; Z91.040 Latex allergy status; Z79.899 Other long term (current) drug therapy
CPT/HCPCS: 36415; 71045; 71275; 80048; 80076; 81001; 82947; 83605; 83735; 83880; 84100; 84484; 85025; 85610; 87040; 87070; 87086; 87088; 87205; 93005; 94760; 96372; 96374; 96375; 97161; 99285; J0696; J1170; J1650; J1815; J2270; J2405; J2785; J3475; J3480; J7030; J7042; Q0162; Q9967